=== PATIENT | female | born 1950 | race African-American/Black ===

== ENCOUNTER 2017-01-14 13:35 | Emergency (ER) | payer OTHER ==
[~2017-01-14] VITALS: Ht 167.6 cm; Wt 109.3 kg
[~2017-01-14 13:35] MED LIST: AMLO5TAB2 PO; ASPI325T11 PO; CEPH-264 PO; CRESTOR20 MG PO; CYCL5TAB PO; DIPH25CA58 PO; DOXY100T PO; ESOM40CA PO; FESO8TAB PO; IPRA3AMP23 IH; LIDO700A4 TP; MECL25TA3 PO; METR250T PO; MIRA25TA PO; OMEP40CA5 PO; PROAIR HFA8.5 GM IH; TRAM50TA PO; TRIA5PAS5 DT; VARE0.5T PO
--- NOTE | 2017-01-14 14:41 | RAD ---
Examination: CT head and cervical spine without contrast History: History of fall, hit head, trauma. Comparison: CT head from 03/24/2016 Technique: Axial CT images of the head was performed with contrast. Axial CT images of the cervical spine was performed and contrast. Coronal and sagittal reformats were performed PQRS Compliance Statement: One or more of the following individualized dose reduction techniques were utilized for this examination: 1. Automated exposure control 2. Adjustment of the mA and/or kV according to patient size 3. Use of iterative reconstruction technique Findings: There is no evidence of midline shift. There is no acute intracranial bleed or extra axial collection identified. The mann-white matter differentiation is maintained. The visualized lateral ventricles, third ventricle, fourth ventricle, are appropriate for age. The basal cisterns are uneffaced. The vertebral body heights are maintained. Moderate intervertebral disc height loss identified at C2-C3, C3-C4, C4-C5, C5-C6 vertebral levels. The bilateral facets are well aligned. No evidence of prevertebral soft tissue swelling identified. The lateral masses of C1 are aligned with C2 vertebra. The C2 dens appears intact. Moderate uncovertebral degenerative changes identified throughout the cervical spine. Impression: 1. No acute intracranial findings. 2. No acute fracture of cervical spine. Correlate clinically. 3. Moderate degenerative changes cervical spine.
[2017-01-14] MEDS ORDERED: HYDROcodone/APAP 5/325MG 1 TAB TABLET PO ONE (14:45)
[2017-01-14 15:01] VITALS: BP 143/75
[2017-01-14] MEDS ORDERED: ACET1TAB33 PO (15:22)
--- NOTE | 2017-01-14 15:23 | PHYS DOC ---
Past Medical History Past Medical History: High Cholesterol Past Surgical History: Knee Replacement, Tonsillectomy Additional Past Surgical Histo: BACK SX Alcohol Use: None Drug Use: None Adult General Chief Complaint Chief Complaint: MECHANICAL FALL HPI HPI Patient is a 66 year old female who was reaching for an object that was high up she does her balance and fell backwards, hit her head and neck, had a brief loss of consciousness. Patient was helped up to her feet was able to bear weight and walk afterwards. Currently she is on the complaining of found head pain in the back of her head as well as neck pain. Denies any weakness or numbness or vision changes. Review of Systems Review of Systems Constitutional: Denies fever or chills [] Eyes: Denies change in visual acuity, redness, or eye pain [] HENT: Posterior head pain Respiratory: Denies cough or shortness of breath [] Cardiovascular: Denies injury GI: Denies abdominal pain, nausea, vomiting, bloody stools or diarrhea [] Musculoskeletal: Mild left lower back pain Integument: Denies rash or skin lesions [] Neurologic: Denies focal weakness or sensory changes [] All systems reviewed and found to be negative unless otherwise stated. Current Medications Current Medications Current Medications Medications (Trade) Dose Ordered Sig/Anthony Start Time Stop Time Status Last Admin Dose Admin Acetaminophen/ Hydrocodone Bitart (Lortab 5/325) 1 tab 1X ONCE 01/14/17 14:45 01/14/17 14:46 DC 01/14/17 15:02 1 TAB Allergies Allergies Allergies Coded Allergies Type Severity Reaction Last Updated Verified cortisone Allergy Intermediate Hives 11/12/14 Yes esomeprazole Allergy Intermediate Rash 11/12/14 Yes ibuprofen Adverse Reaction Intermediate REYNOLDS STOMACH 11/12/14 Yes Physical Exam Physical Exam Constitutional: Well developed, well nourished, no acute distress, non-toxic appearance. [] HENT: Normocephalic, atraumatic, no signs of basilar skull fracture, oropharynx moist, no signs of oral trauma, nose normal. [] Eyes: PERRLA, EOMI, conjunctiva normal, no discharge. [] Neck: Normal range of motion, tenderness midline at the level C4, no step-offs, supple, no stridor. [] Cardiovascular:Heart rate regular rhythm, no murmur, equal pulses, normal perfusion. Mild diffuse chest wall tenderness to palpation, no crepitus, no ecchymosis, no bruising Lungs & Thorax: Bilateral breath sounds clear to auscultation, no tachypnea Abdomen: Bowel sounds normal, soft, no tenderness, no masses, no pulsatile masses. Pelvis stable Skin: Warm, dry, no erythema, no rash. [] Back: No tenderness, no CVA tenderness. No step-offs Extremities: No tenderness, no cyanosis, no clubbing, ROM intact, no edema. No pain with range of motion of her lower extremities Neurologic: Alert and oriented X 3, normal motor function, no focal deficits noted. [] Psychologic: Affect normal, judgement normal, mood normal. [] Current Patient Data Vital Signs Vital Signs Date Time Temp Pulse Resp B/P (MAP) Pulse Ox O2 Delivery O2 Flow Rate FiO2 01/14/17 15:02 18 98 Room Air 01/14/17 15:01 72 143/75 (97) 01/14/17 13:35 97.8 97.8 EKG EKG [] Radiology/Procedures Radiology/Procedures No acute findings on CT scan of the head and the neck[] Course & Med Decision Making Course & Med Decision Making Pertinent Labs and Imaging studies reviewed. (See chart for details) 1516 patient resting comfortably and in no distress [] Dragon Disclaimer Dragon Disclaimer This electronic medical record was generated, in whole or in part, using a voice recognition dictation system. Departure Departure Disposition: HOME, SELF-CARE Condition: STABLE Referrals: PREETI VALENZUELA MD (PCP) Please follow-up with your doctor for recheck and reevaluation in the 3-5 days if needed. If he started expressing unusual headaches changes in vision and vomiting problems with ambulation or localized weakness return to the ED immediately or see your doctor immediately Patient Instructions: Head Injury, Adult, Soft Tissue Injury of the Neck Scripts Acetaminophen With Codeine (ACETAMINOPHEN-COD #3 TABLET) 1 Each Tablet 1 TAB PO PRN Q6HRS Y for PAIN for 2 Days, #8 TAB Prov: Lara RODRIGUEZ MD 01/14/17 Lara RODRIGUEZ MD Jan 14, 2017 15:23
== END 2017-01-14 15:50 | disposition home or self-care (01) ==
LOC: ER 13:35
DX: R51 Headache (principal); M54.2 Cervicalgia; M54.5 Low back pain; E78.00 Pure hypercholesterolemia, unspecified; Z88.6 Allergy status to analgesic agent; Z88.8 Allergy status to other drugs, medicaments and biological substances; W18.09XA Striking against other object with subsequent fall, initial encounter; Y93.89 Activity, other specified; Y99.8 Other external cause status; Y92.89 Other specified places as the place of occurrence of the external cause
CPT/HCPCS: 70450; 72125; 99284-25

== ENCOUNTER 2018-04-09 21:11 | Emergency (ER) | payer OTHER ==
[~2018-04-09] VITALS: Ht 167.6 cm; Wt 113.4 kg
[~2018-04-09 21:11] MED LIST changes: +ACET1TAB33 PO; +ALBU2.5V8 IH; -AMLO5TAB2 PO; +AMLO5TAB7 PO; -PROAIR HFA8.5 GM IH
--- NOTE | 2018-04-09 22:46 | PHYS DOC ---
Past Medical History Past Medical History: High Cholesterol Past Surgical History: Knee Replacement, Tonsillectomy Additional Past Surgical Histo: BACK SX Alcohol Use: None Drug Use: None Adult General Chief Complaint Chief Complaint: NEURO SYMPTOMS/DEFICITS HPI HPI Patient is a 67 year old female who presents with left-sided facial pain, dizziness, headache and frequent falls. Symptom onset was several weeks ago. Patient's been evaluated her primary care physician for her complaints anti- inflammatories.Patient denies fever,chills,nausea vomiting or sweats.Does report ringing in left ear. No extremity weakness loss of sedation or change of vision. No chest pain palpitations,shortness of breath. No other acute symptoms or complaints. [] Review of Systems Review of Systems Review symptoms as per history of present illness. All other review symptoms are negative. All other systems were reviewed and found to be within normal limits, except as documented in this note. Current Medications Current Medications Current Medications Medications (Trade) Dose Ordered Sig/Anthony Start Time Stop Time Status Last Admin Dose Admin Info (CONTRAST GIVEN -- Rx MONITORING) 1 each PRN DAILY PRN 04/10/18 02:15 04/12/18 02:14 Iohexol (Omnipaque 300 Mg/ml) 100 ml 1X ONCE 04/10/18 02:30 04/10/18 02:31 DC Meclizine HCl (Antivert) 25 mg 1X ONCE 04/10/18 04:00 04/10/18 04:01 Allergies Allergies Allergies Coded Allergies Type Severity Reaction Last Updated Verified cortisone Allergy Intermediate Hives 11/12/14 Yes esomeprazole Allergy Intermediate Rash 11/12/14 Yes ibuprofen Adverse Reaction Intermediate REYNOLDS STOMACH 11/12/14 Yes Physical Exam Physical Exam Constitutional: Well developed, well nourished, no acute distress, non-toxic appearance. [] HENT: Normocephalic, atraumatic, bilateral external ears normal, oropharynx moist, no oral exudates, nose normal. No temporal scalp tenderness.[] Eyes: PERRLA, EOMI, conjunctiva normal, no nystagmus.[] Neck: Normal range of motion, no tenderness, supple, no stridor. [] Cardiovascular:Heart rate regular rhythm, no murmur [] Lungs & Thorax: Bilateral breath sounds clear to auscultation [] Abdomen: Bowel sounds normal, soft, no tenderness. [] Skin: Warm, dry, no erythema, no rash. [] Back: No tenderness, no CVA tenderness. [] Extremities: No tenderness, no cyanosis, no clubbing, ROM intact, no edema. [] Neurologic: Alert and oriented X 3, cranial nerves II through XII grossly intact , normal motor function, normal sensory function, no focal deficits noted. [] Psychologic: Affect normal, judgement normal, mood normal. [] Current Patient Data Vital Signs Vital Signs Date Time Temp Pulse Resp B/P (MAP) Pulse Ox O2 Delivery O2 Flow Rate FiO2 04/09/18 21:25 97.5 60 140/70 (93) 98 Room Air 97.5 Lab Values Laboratory Tests Test 04/09/18 22:40 04/09/18 23:40 White Blood Count 4.4 x10^3/uL (4.0-11.0) Red Blood Count 3.85 x10^6/uL (3.50-5.40) Hemoglobin 11.8 g/dL (12.0-15.5) L Hematocrit 35.2 % (36.0-47.0) L Mean Corpuscular Volume 92 fL (79-100) Mean Corpuscular Hemoglobin 31 pg (25-35) Mean Corpuscular Hemoglobin Concent 34 g/dL (31-37) Red Cell Distribution Width 13.8 % (11.5-14.5) Platelet Count 235 x10^3/uL (140-400) Neutrophils (%) (Auto) 44 % (31-73) Lymphocytes (%) (Auto) 47 % (24-48) Monocytes (%) (Auto) 8 % (0-9) Eosinophils (%) (Auto) 2 % (0-3) Basophils (%) (Auto) 0 % (0-3) Neutrophils # (Auto) 1.9 x10^3uL (1.8-7.7) Lymphocytes # (Auto) 2.0 x10^3/uL (1.0-4.8) Monocytes # (Auto) 0.3 x10^3/uL (0.0-1.1) Eosinophils # (Auto) 0.1 x10^3/uL (0.0-0.7) Basophils # (Auto) 0.0 x10^3/uL (0.0-0.2) Sodium Level 144 mmol/L (136-145) Potassium Level 3.6 mmol/L (3.5-5.1) Chloride Level 107 mmol/L (98-107) Carbon Dioxide Level 32 mmol/L (21-32) Anion Gap 5 (6-14) L Blood Urea Nitrogen 10 mg/dL (7-20) Creatinine 0.9 mg/dL (0.6-1.0) Estimated GFR (Cockcroft-Gault) 75.8 BUN/Creatinine Ratio 11 (6-20) Glucose Level 100 mg/dL (70-99) H Calcium Level 9.1 mg/dL (8.5-10.1) Total Bilirubin 0.3 mg/dL (0.2-1.0) Aspartate Amino Transferase (AST) 18 U/L (15-37) Alanine Aminotransferase (ALT) 14 U/L (14-59) Alkaline Phosphatase 61 U/L (46-116) Total Protein 7.1 g/dL (6.4-8.2) Albumin 3.3 g/dL (3.4-5.0) L Albumin/Globulin Ratio 0.9 (1.0-1.7) L Thyroid Stimulating Hormone (TSH) 3.786 uIU/mL (0.358-3.74) H Urine Collection Type Unknown Urine Color Yellow Urine Clarity Clear Urine pH 6.0 Urine Specific [place] 1.015 Urine Protein Negative mg/dL (NEG-TRACE) Urine Glucose (UA) Negative mg/dL (NEG) Urine Ketones (Stick) Negative mg/dL (NEG) Urine Blood Negative (NEG) Urine Nitrite Negative (NEG) Urine Bilirubin Negative (NEG) Urine Urobilinogen Dipstick 1.0 mg/dL (0.2 mg/dL) Urine Leukocyte Esterase Large (NEG) Urine RBC Occ /HPF (0-2) Urine WBC 5-10 /HPF (0-4) Urine Squamous Epithelial Cells Many /LPF Urine Bacteria Moderate /HPF (0-FEW) Urine Mucus Mod /LPF Urine Trichomonas Present Urine Opiates Screen Neg (NEG) Urine Methadone Screen Neg (NEG) Urine Barbiturates Neg (NEG) Urine Phencyclidine Screen Neg (NEG) Urine Amphetamine/Methamphetamine Neg (NEG) Urine Benzodiazepines Screen Neg (NEG) Urine Cocaine Screen Neg (NEG) Urine Cannabinoids Screen Neg (NEG) Urine Ethyl Alcohol Neg (NEG) Laboratory Tests 04/09/18 22:40 Laboratory Tests 04/09/18 22:40 EKG EKG [EKG: Reviewed] Radiology/Procedures Radiology/Procedures [CT head: NAD CTA head/neck: NAD] Course & Med Decision Making Course & Med Decision Making Pertinent Labs and Imaging studies reviewed. (See chart for details) [No focal neurologic deficits. Symptoms been ongoing for the past several weeks. Patient states her dizzy episodes are preceded by throbbing unilateral headache. CT head/CT angiogram head and neck her do not show evidence of acute disease. Lab work is nondiagnostic with the exception of an incidental UTI. Recommend continued supportive care with PCP follow-up for further management. Patient verbalizes understanding and agreement with discharge instructions prior to departure] Dragon Disclaimer Dragon Disclaimer This electronic medical record was generated, in whole or in part, using a voice recognition dictation system. Departure Departure Impression: Primary Impression: Dizziness Additional Impressions: Left arm weakness Urinary tract infection Disposition: HOME, SELF-CARE Condition: GOOD Referrals: PREETI VALENZUELA MD (PCP) Patient Instructions: Dizziness, [id number], General Headache Without Cause, [id number], Urinary Tract Infection Additional Instructions: Please be careful to use your walker as you are at increased risk of fall and injury. Please continue medications and take antibiotics as directed. Follow-up with your PCP in 3-5 days for reevaluation. Return to the ED if new or worsening symptoms. Scripts Cephalexin (KEFLEX) 500 Mg Capsule 1 CAP PO BID, #14 CAP Prov: VERNON HENSLEY DO 04/10/18 Problem Qualifiers VERNON HENSLEY DO Apr 09, 2018 22:46
[2018-04-09 22:59] LABS: BASO % 0 % (0-3); EOS # 0.1 x10^3/uL (0.0-0.7); EOS % 2 % (0-3); HEMATOCRIT 35.2 % (36.0-47.0); HEMOGLOBIN 11.8 g/dL (12.0-15.5); LYMPH % 47 % (24-48); MEAN CORPUSCULAR HEMOGLOBIN 31 pg (25-35); MEAN CORPUSCULAR HGB CONC 34 g/dL (31-37); MEAN CORPUSCULAR VOLUME 92 fL (79-100); MONO # 0.3 x10^3/uL (0.0-1.1); MONO % 8 % (0-9); NEUT # 1.9 x10^3uL (1.8-7.7); NEUT % 44 % (31-73); PLATELET COUNT 235 x10^3/uL (140-400); RED BLOOD COUNT 3.85 x10^6/uL (3.50-5.40); RED CELL DISTRIBUTION WIDTH 13.8 % (11.5-14.5); WHITE BLOOD COUNT 4.4 x10^3/uL (4.0-11.0)
[2018-04-09 23:09] LABS: CALCIUM 9.1 mg/dL (8.5-10.1); CREATININE 0.9 mg/dL (0.6-1.0); GFR 75.8; POTASSIUM 3.6 mmol/L (3.5-5.1)
[2018-04-09 23:14] LABS: ALBUMIN 3.3 g/dL (3.4-5.0); ALBUMIN/GLOBULIN RATIO 0.9 (1.0-1.7); TOTAL BILIRUBIN 0.3 mg/dL (0.2-1.0); TOTAL PROTEIN 7.1 g/dL (6.4-8.2)
--- NOTE | 2018-04-09 23:17 | RAD ---
CT brain without contrast. HISTORY: Headache, dizziness CT scan of brain was done without contrast. There is no intracranial hemorrhage or subdural hematoma. Ventricles are normal in size. There is no mass or shift of the midline. An acute CVA is not identified. Sinuses are clear. IMPRESSION: 1. No intracranial hemorrhage or acute finding noted. Electronically signed by: Kevin Alegre MD (04/09/2018 11:13 PM) [facility]
[2018-04-09 23:54] LABS: BILIRUBIN,URINE NEGATIVE (NEG); CLARITY,URINE CLEAR; COLOR,URINE YELLOW; NITRITE,URINE NEGATIVE (NEG); PROTEIN,URINE NEGATIVE (NEG-TRACE)
[2018-04-09 23:59] LABS: RBC,URINE OCC /HPF (0-2); SQUAMOUS EPITHELIAL CELL,UR MANY /LPF
[2018-04-10 00:01] LABS: BACTERIA,URINE MODERATE /HPF (0-FEW); TRICHOMONAS,URINE PRESENT
[2018-04-10 00:04] LABS: BARBITURATES NEG (NEG); BENZODIAZEPINES NEG (NEG); CANNABINOIDS NEG (NEG); COCAINE NEG (NEG); METHADONE NEG (NEG); OPIATES NEG (NEG); PHENCYCLIDINE NEG (NEG)
[2018-04-10 00:06] LABS: AMPHETAMINE/METHAMPHETAMINE NEG (NEG)
[2018-04-10] MEDS ORDERED: CONTRAST GIVEN. MC PRN (02:15)
[2018-04-10] MEDS ORDERED: IOHEXOL 300 MG/ML 100ML VIAL. IV ONE (02:30)
--- NOTE | 2018-04-10 03:16 | RAD ---
CTA head and neck with and without contrast 04/10/2018. Reason for exam: Headache and dizziness. Helical thin section CT images were performed through the neck and head using an infusion of 100 mL Omnipaque 300. Multiplanar and 3-D reformations were then performed. Carotid stenoses in the neck were graded per NASCET criteria. Exposure: One or more of the following individualized dose reduction techniques were utilized for this examination: 1. Automated exposure control 2. Adjustment of the mA and/or kV according to patient size 3. Use of iterative reconstruction technique. FINDINGS: CTA neck: There is the standard branching pattern of the great vessels. The common carotid arteries show tortuosity without apparent narrowing or focal plaque. The carotid bulbs are widely patent. The internal carotid arteries are both very tortuous through the neck, but show no significant plaque or narrowing. Both vertebral arteries are patent and similar in caliber. They show some tortuosity, but no focal narrowing, dissection or occlusion is seen. The visualized subclavian segments appear normal. Although this study was not performed to evaluate other structures, no abnormality is seen at the lung apices. There is no apparent mass or adenopathy in the neck. No airway abnormality is seen. The salivary glands and thyroid show no abnormality. IMPRESSION: No acute abnormality in the vessels of the neck. CTA head findings: The distal vertebral arteries are patent and appear normal extending to their confluence. The basilar artery and internal carotid arteries are patent extending through the skull base to the brain. No focal narrowing or aneurysmal dilatation is seen. The anterior, middle and posterior cerebral branches are patent bilaterally and show no apparent abnormality extending to their major branch points. The visualized cerebellar branches appear normal. No abnormal vascularity is seen. IMPRESSION: Normal CTA of the head. Electronically signed by: Law Steiner Jr., MD (04/10/2018 3:12 AM) [id number]
[2018-04-10 03:45] VITALS: BP 150/70
[2018-04-10] MEDS ORDERED: CEPH-264 PO (03:47)
[2018-04-10] MEDS ORDERED: MECLIZINE HCL 12.5 MG TABLET. PO ONE (04:00)
--- NOTE | 2018-04-10 07:57 | EKG ---
[facility] [address] [place] [address] Test Date: 2018-04-09 Test Time: 21:45:47 Pat Name: BELINDA GREENE Department: Room: Gender: Female [employer]: : 1950 Requested By: VERNON HENSLEY Order Number: [id number] Reading MD: Ben Dorado Measurements Intervals [place] Rate: 54 P: 50 OK: 166 QRS: -2 QRSD: 86 T: 21 QT: 438 QTc: 417 Interpretive Statements SINUS RHYTHM LEFTWARD AXIS Electronically Signed On 04-20-2018 7:53:12 [employer] by Ben Dorado
== END 2018-04-10 03:50 | disposition home or self-care (01) ==
LOC: ER 21:11
DX: R42 Dizziness and giddiness (principal); N39.0 Urinary tract infection, site not specified; R51 Headache; R53.1 Weakness; E78.00 Pure hypercholesterolemia, unspecified; Z88.8 Allergy status to other drugs, medicaments and biological substances
CPT/HCPCS: 36415; 70450; 70496; 70498; 80053; 80307; 81001; 84443; 85025; 87086; 93005; 99284-25

== ENCOUNTER 2018-04-29 08:46 | Inpatient (IN) | payer OTHER, MEDICAID ==
[~2018-04-29] VITALS: Ht 167.6 cm; Wt 119.4 kg
[~2018-04-29 08:46] MED LIST changes: +AMLO5TAB10 PO; -AMLO5TAB7 PO
[2018-04-29] MEDS ORDERED: IV NORMAL SALINE 1000ML BAG 1,000 ML IV ONE ×2 (09:30→14:15)
[2018-04-29] MEDS ORDERED: MECLIZINE HCL 12.5 MG TABLET. PO ONE (09:30)
--- NOTE | 2018-04-29 09:36 | RAD ---
Single view of the chest. 04/29/2018 8:53 AM Indication: SYNCOPE Comparison: Chest radiograph March 24, 2016 Findings: Central and perihilar vascular engorgement is noted. No pneumothorax or pleural effusion is seen. No focal consolidative infiltrate is identified. Heart size appears to be normal. No acute osseous changes are identified. IMPRESSION: Central vascular and perihilar vascular engorgement. Findings could represent early pulmonary edema or hypervolemia/significant fluid resuscitation. Electronically signed by: Jamie Mchugh MD (04/29/2018 9:31 AM) [id number]
--- NOTE | 2018-04-29 09:42 | PHYS DOC ---
Past Medical History Past Medical History: High Cholesterol, Stroke Past Surgical History: Appendectomy, Knee Replacement, Tonsillectomy Additional Past Surgical Histo: BACK SX; bilateral knee; bilateral capal tunnel Alcohol Use: None Drug Use: None Adult General Chief Complaint Chief Complaint: SYNCOPE HPI HPI Patient is a 67 year old female with a history of stroke, no deficits, chronic dizziness and vertigo presents today complaining of dizziness, with vertigo and 2 syncope episodes today. Patient states her symptoms are worse when she is up and moving. Patient states sometimes she feels like she or the room is spinning. Patient denies any nausea vomiting. Denies any headache. Denies any chest pain or shortness of breath. Review of Systems Review of Systems Constitutional: Denies fever or chills [] Eyes: Denies change in visual acuity, redness, or eye pain [] HENT: Denies nasal congestion or sore throat [] Respiratory: Denies cough or shortness of breath [] Cardiovascular: No additional information not addressed in HPI [] GI: Denies abdominal pain, nausea, vomiting, bloody stools or diarrhea [] : Denies dysuria or hematuria [] Musculoskeletal: Denies back pain or joint pain [] Integument: Denies rash or skin lesions [] Neurologic: Reports dizziness, vertigo, syncope. Denies headache, focal weakness or sensory changes [] All other systems were reviewed and found to be within normal limits, except as documented in this note. Current Medications Current Medications Current Medications Medications (Trade) Dose Ordered Sig/Anthony Start Time Stop Time Status Last Admin Dose Admin Acetaminophen (Tylenol) 650 mg PRN Q4HRS PRN 04/29/18 14:15 04/30/18 14:14 Azithromycin (Zithromax) 1,000 mg 1X ONCE 04/29/18 14:15 04/29/18 14:16 DC Ceftriaxone Sodium (Rocephin) 1 gm 1X ONCE 04/29/18 14:15 04/29/18 14:16 DC Info (CONTRAST GIVEN -- Rx MONITORING) 1 each PRN DAILY PRN 04/29/18 11:30 05/01/18 11:29 Iohexol (Omnipaque 350 Mg/ml) 100 ml 1X ONCE 04/29/18 11:00 04/29/18 11:15 DC 04/29/18 11:00 100 ML Meclizine HCl (Antivert) 25 mg PRN TID PRN 04/29/18 14:15 Metronidazole (Flagyl) 2,000 mg 1X ONCE 04/29/18 14:15 04/29/18 14:16 DC Ondansetron HCl (Zofran) 4 mg PRN Q8HRS PRN 04/29/18 14:15 04/30/18 14:14 Sodium Chloride 1,000 ml @ 125 mls/hr 1X ONCE 04/29/18 14:15 04/29/18 22:14 Allergies Allergies Allergies Coded Allergies Type Severity Reaction Last Updated Verified cortisone Allergy Intermediate Hives 11/12/14 Yes esomeprazole Allergy Intermediate Rash 11/12/14 Yes ibuprofen Adverse Reaction Intermediate REYNOLDS STOMACH 11/12/14 Yes Physical Exam Physical Exam Constitutional: Well developed, well nourished, no acute distress, non-toxic appearance. [] HENT: Normocephalic, atraumatic, bilateral external ears normal, oropharynx moist, no oral exudates, nose normal. [] Eyes: PERRLA, EOMI, conjunctiva normal, no discharge. [] Neck: Normal range of motion, no tenderness, supple, no stridor. [] Cardiovascular:Heart rate regular rhythm, no murmur [] Lungs & Thorax: Bilateral breath sounds clear to auscultation [] Abdomen: Bowel sounds normal, soft, no tenderness, no masses, no pulsatile masses. [] Skin: Warm, dry, no erythema, no rash. [] Back: No tenderness, no CVA tenderness. [] Extremities: No tenderness, no cyanosis, no clubbing, ROM intact, no edema. [] Neurologic: Alert and oriented X 3, normal motor function, normal sensory function, no focal deficits noted. Cranial nerves II through XII intact Psychologic: Affect normal, judgement normal, mood normal. [] Current Patient Data Vital Signs Vital Signs Date Time Temp Pulse Resp B/P (MAP) Pulse Ox O2 Delivery O2 Flow Rate FiO2 04/29/18 13:57 77 16 170/77 (108) 98 Room Air 04/29/18 08:54 97.7 97.7 Lab Values Laboratory Tests Test 04/29/18 10:00 04/29/18 13:00 White Blood Count 3.3 x10^3/uL (4.0-11.0) L Red Blood Count 3.79 x10^6/uL (3.50-5.40) Hemoglobin 11.6 g/dL (12.0-15.5) L Hematocrit 34.8 % (36.0-47.0) L Mean Corpuscular Volume 92 fL (79-100) Mean Corpuscular Hemoglobin 31 pg (25-35) Mean Corpuscular Hemoglobin Concent 33 g/dL (31-37) Red Cell Distribution Width 13.9 % (11.5-14.5) Platelet Count 222 x10^3/uL (140-400) Neutrophils (%) (Auto) 48 % (31-73) Lymphocytes (%) (Auto) 42 % (24-48) Monocytes (%) (Auto) 8 % (0-9) Eosinophils (%) (Auto) 1 % (0-3) Basophils (%) (Auto) 0 % (0-3) Neutrophils # (Auto) 1.6 x10^3uL (1.8-7.7) L Lymphocytes # (Auto) 1.4 x10^3/uL (1.0-4.8) Monocytes # (Auto) 0.3 x10^3/uL (0.0-1.1) Eosinophils # (Auto) 0.0 x10^3/uL (0.0-0.7) Basophils # (Auto) 0.0 x10^3/uL (0.0-0.2) Prothrombin Time 13.0 SEC (11.7-14.0) Prothrombin Time INR 1.0 (0.8-1.1) D-Dimer (Julia) 0.61 ug/mlFEU (0.00-0.50) H Sodium Level 145 mmol/L (136-145) Potassium Level 4.5 mmol/L (3.5-5.1) Chloride Level 106 mmol/L (98-107) Carbon Dioxide Level 31 mmol/L (21-32) Anion Gap 8 (6-14) Blood Urea Nitrogen 10 mg/dL (7-20) Creatinine 0.8 mg/dL (0.6-1.0) Estimated GFR (Cockcroft-Gault) 86.8 BUN/Creatinine Ratio 13 (6-20) Glucose Level 74 mg/dL (70-99) Calcium Level 9.1 mg/dL (8.5-10.1) Magnesium Level 2.0 mg/dL (1.8-2.4) Total Bilirubin 0.3 mg/dL (0.2-1.0) Aspartate Amino Transferase (AST) 15 U/L (15-37) Alanine Aminotransferase (ALT) 14 U/L (14-59) Alkaline Phosphatase 62 U/L (46-116) Troponin I Quantitative < 0.017 ng/mL (0.000-0.055) PC-Tqq-S-Type Natriuretic Peptide 59 pg/mL (0-124) Total Protein 6.9 g/dL (6.4-8.2) Albumin 3.2 g/dL (3.4-5.0) L Albumin/Globulin Ratio 0.9 (1.0-1.7) L Lipase 198 U/L (73-393) Thyroid Stimulating Hormone (TSH) 4.686 uIU/mL (0.358-3.74) H Urine Collection Type Unknown Urine Color Yellow Urine Clarity Clear Urine pH 7.0 Urine Specific [place] >=1.030 Urine Protein Negative mg/dL (NEG-TRACE) Urine Glucose (UA) Negative mg/dL (NEG) Urine Ketones (Stick) Negative mg/dL (NEG) Urine Blood Negative (NEG) Urine Nitrite Negative (NEG) Urine Bilirubin Negative (NEG) Urine Urobilinogen Dipstick 1.0 mg/dL (0.2 mg/dL) Urine Leukocyte Esterase Moderate (NEG) Urine RBC 6-10 /HPF (0-2) Urine WBC 11-20 /HPF (0-4) Urine Squamous Epithelial Cells Many /LPF Urine Bacteria 0 /HPF (0-FEW) Urine Trichomonas Present Urine Opiates Screen Neg (NEG) Urine Methadone Screen Neg (NEG) Urine Barbiturates Neg (NEG) Urine Phencyclidine Screen Neg (NEG) Urine Amphetamine/Methamphetamine Neg (NEG) Urine Benzodiazepines Screen Neg (NEG) Urine Cocaine Screen Neg (NEG) Urine Cannabinoids Screen Neg (NEG) Urine Ethyl Alcohol Neg (NEG) Laboratory Tests 04/29/18 10:00 Laboratory Tests 04/29/18 10:00 EKG EKG [address] Braun sinus rhythm, heart rate 66 ST segments congruent no STEMI[] Radiology/Procedures Radiology/Procedures []PROCEDURE: CT ANGIOGRAPHY CHEST CTA of the chest with contrast, 04/29/2018: HISTORY: Syncope, elevated d-dimer Multidetector CT imaging was performed following an IV bolus injection of iodinated contrast material. Multiplanar reconstructions were produced including coronal and sagittal MIP images. The central pulmonary arteries are well opacified and no filling defects are seen to suggest pulmonary emboli. There is calcific plaquing of the thoracic aorta without evidence of aneurysm. Scattered coronary artery calcifications are also present. There are calcified mediastinal and right hilar lymph nodes compatible with old granulomatous disease. There is mild streaky dependent atelectasis and/or scarring in both lungs. No pulmonary consolidation or mass is seen. There is no evidence of pleural fluid. IMPRESSION: 1. No CT evidence of central pulmonary emboli. 2. Scattered coronary artery calcifications. PQRS Compliance Statement: One or more of the following individualized dose reduction techniques were utilized for this examination: 1. Automated exposure control 2. Adjustment of the mA and/or kV according to patient size 3. Use of iterative reconstruction technique Electronically signed by: Inocente Aleman MD (04/29/2018 11:58 AM) [facility] DICTATED and SIGNED BY: INOCENTE ALEMAN MD DATE: 04/29/18 1151 PROCEDURE: PORTABLE CHEST 1V Single view of the chest. 04/29/2018 8:53 AM Indication: SYNCOPE Comparison: Chest radiograph March 24, 2016 Findings: Central and perihilar vascular engorgement is noted. No pneumothorax or pleural effusion is seen. No focal consolidative infiltrate is identified. Heart size appears to be normal. No acute osseous changes are identified. IMPRESSION: Central vascular and perihilar vascular engorgement. Findings could represent early pulmonary edema or hypervolemia/significant fluid resuscitation. Electronically signed by: Jamie Padilla MD (04/29/2018 9:31 AM) [facility] DICTATED and SIGNED BY: JAMIE PADILLA MD DATE: 04/29/18 0929 PROCEDURE: CT HEAD WO CONTRAST CT HEAD INDICATION: SYNCOPE COMPARISON: 04/07/2018 Exposure: One or more of the following individualized dose reduction techniques were utilized for this examination: 1. Automated exposure control 2. Adjustment of the mA and/or kV according to patient size 3. Use of iterative reconstruction technique TECHNIQUE: 5 mm contiguous axial images were obtained from the skull base to the vertex FINDINGS: Mild bilateral periventricular white matter hypodensities likely chronic small vessel ischemic disease. No evidence of acute intracranial hemorrhage. No extra-axial fluid collections. No mass effect or midline shift. Ventricular size is appropriate. Basal cisterns are patent. No fractures identified.Hdez-white differentiation is preserved.Globes and orbits are within normal limits. Paranasal sinuses and mastoid air cells are clear. IMPRESSION: No acute intracranial findings. Electronically signed by: Remberto Lozoya MD (04/29/2018 10:28 AM) [id number] DICTATED and SIGNED BY: REMBERTO LOZOYA MD DATE: 04/29/18 1023 Course & Med Decision Making Course & Med Decision Making Pertinent Labs and Imaging studies reviewed. (See chart for details) This is a 67-year-old female patient with history of vertigo presenting today with dizziness, vertigo symptoms and to syncope episodes today. CBC with a WBC of 3.3, CMP would not acute findings, CT of the head is negative, chest x-ray is negative. Urine analysis is noted for Trichomonas and urinary tract infection. Patient was given STD treatment in the ED. Patient was unable to get up and mobilize in the ED. Unable to get orthostatic vitals. Patient was given IV fluids and meclizine. Consulted with who accepted patient for admission Routine consult placed for neurosurgery Dr. Mccollum came and saw patient in the Ed. Dragon Disclaimer Dragon Disclaimer This electronic medical record was generated, in whole or in part, using a voice recognition dictation system. Departure Departure Impression: Primary Impression: Dizziness Additional Impressions: UTI (urinary tract infection) Vertigo Trichomonal vaginitis Disposition: ADMITTED INPATIENT Condition: STABLE Referrals: PREETI VALENZUELA MD (PCP) Problem Qualifiers Additional Impressions: UTI (urinary tract infection) Urinary tract infection type: site unspecified Hematuria presence: without hematuria Qualified Codes: N39.0 - Urinary tract infection, site not specified CIRILOUMANG OLIVER [facility] Apr 29, 2018 09:42
[2018-04-29 10:22] LABS: BASO % 0 % (0-3); CALCIUM 9.1 mg/dL (8.5-10.1); CREATININE 0.8 mg/dL (0.6-1.0); EOS % 1 % (0-3); GFR 86.8; HEMATOCRIT 34.8 % (36.0-47.0); HEMOGLOBIN 11.6 g/dL (12.0-15.5); LYMPH # 1.4 x10^3/uL (1.0-4.8); LYMPH % 42 % (24-48); MEAN CORPUSCULAR HEMOGLOBIN 31 pg (25-35); MEAN CORPUSCULAR HGB CONC 33 g/dL (31-37); MEAN CORPUSCULAR VOLUME 92 fL (79-100); MONO # 0.3 x10^3/uL (0.0-1.1); MONO % 8 % (0-9); NEUT # 1.6 x10^3uL (1.8-7.7); NEUT % 48 % (31-73); PLATELET COUNT 222 x10^3/uL (140-400); POTASSIUM 4.5 mmol/L (3.5-5.1); RED BLOOD COUNT 3.79 x10^6/uL (3.50-5.40); RED CELL DISTRIBUTION WIDTH 13.9 % (11.5-14.5); WHITE BLOOD COUNT 3.3 x10^3/uL (4.0-11.0)
[2018-04-29 10:28] LABS: ALBUMIN 3.2 g/dL (3.4-5.0); ALBUMIN/GLOBULIN RATIO 0.9 (1.0-1.7); TOTAL BILIRUBIN 0.3 mg/dL (0.2-1.0); TOTAL PROTEIN 6.9 g/dL (6.4-8.2)
--- NOTE | 2018-04-29 10:33 | RAD ---
CT HEAD INDICATION: SYNCOPE COMPARISON: 04/07/2018 Exposure: One or more of the following individualized dose reduction techniques were utilized for this examination: 1. Automated exposure control 2. Adjustment of the mA and/or kV according to patient size 3. Use of iterative reconstruction technique TECHNIQUE: 5 mm contiguous axial images were obtained from the skull base to the vertex FINDINGS: Mild bilateral periventricular white matter hypodensities likely chronic small vessel ischemic disease. No evidence of acute intracranial hemorrhage. No extra-axial fluid collections. No mass effect or midline shift. Ventricular size is appropriate. Basal cisterns are patent. No fractures identified.Hdez-white differentiation is preserved.Globes and orbits are within normal limits. Paranasal sinuses and mastoid air cells are clear. IMPRESSION: No acute intracranial findings. Electronically signed by: Remberto Silva MD (04/29/2018 10:28 AM) [facility]
--- NOTE | 2018-04-29 10:52 | EKG ---
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
[2018-04-29] MEDS ORDERED: IOHEXOL 350 MG/ML 100 ML VIAL. IV ONE (11:00)
[2018-04-29] MEDS ORDERED: CONTRAST GIVEN. MC PRN (11:30)
--- NOTE | 2018-04-29 12:03 | RAD ---
CTA of the chest with contrast, 04/29/2018: HISTORY: Syncope, elevated d-dimer Multidetector CT imaging was performed following an IV bolus injection of iodinated contrast material. Multiplanar reconstructions were produced including coronal and sagittal MIP images. The central pulmonary arteries are well opacified and no filling defects are seen to suggest pulmonary emboli. There is calcific plaquing of the thoracic aorta without evidence of aneurysm. Scattered coronary artery calcifications are also present. There are calcified mediastinal and right hilar lymph nodes compatible with old granulomatous disease. There is mild streaky dependent atelectasis and/or scarring in both lungs. No pulmonary consolidation or mass is seen. There is no evidence of pleural fluid. IMPRESSION: 1. No CT evidence of central pulmonary emboli. 2. Scattered coronary artery calcifications. PQRS Compliance Statement: One or more of the following individualized dose reduction techniques were utilized for this examination: 1. Automated exposure control 2. Adjustment of the mA and/or kV according to patient size 3. Use of iterative reconstruction technique Electronically signed by: Inocente Aleman MD (04/29/2018 11:58 AM) [facility]
[2018-04-29 13:10] LABS: BILIRUBIN,URINE NEGATIVE (NEG); CLARITY,URINE CLEAR; COLOR,URINE YELLOW; NITRITE,URINE NEGATIVE (NEG); PROTEIN,URINE NEGATIVE (NEG-TRACE)
[2018-04-29 13:17] LABS: BARBITURATES NEG (NEG); BENZODIAZEPINES NEG (NEG); CANNABINOIDS NEG (NEG); COCAINE NEG (NEG); METHADONE NEG (NEG); OPIATES NEG (NEG); PHENCYCLIDINE NEG (NEG)
[2018-04-29 13:22] LABS: AMPHETAMINE/METHAMPHETAMINE NEG (NEG); BACTERIA,URINE 0 /HPF (0-FEW); SQUAMOUS EPITHELIAL CELL,UR MANY /LPF
[2018-04-29 13:23] LABS: TRICHOMONAS,URINE PRESENT
[2018-04-29] MEDS ORDERED: AZITHROMYCIN 250 MG TABLET. PO ONE (14:15)
[2018-04-29] MEDS ORDERED: ONDANSETRON PF 4 MG/2 ML VIAL. IV PRN (14:15)
[2018-04-29] MEDS ORDERED: ACETAMINOPHEN 325 MG TABLET. PO PRN (14:15)
[2018-04-29] MEDS ORDERED: MECLIZINE HCL 12.5 MG TABLET. PO PRN (14:15)
[2018-04-29] MEDS ORDERED: cefTRIAXone IV Push 1 GM VIAL. IVP ONE (14:15)
[2018-04-29] MEDS ORDERED: metroNIDAZOLE 500 MG TABLET PO ONE (14:15)
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
[2018-04-29] MEDS: MECLIZINE HCL 12.5 MG TABLET. PO SCH ×2 (15:00→21:33)
[2018-04-29 16:00] VITALS: BP 123/63
--- NOTE | 2018-04-29 16:05 | RAD ---
MRI Brain without contrast History: Vertigo, dizziness, recent syncope Technique: Multiplanar, multisequential noncontrast MR imaging was performed of the brain. Comparison: March 25, 2016 Findings: There is mild motion. There is again scattered minimal T2 and FLAIR hyperintense signal abnormality of the supratentorial parenchyma bilaterally. Allowing for motion on both exams, findings have not convincingly changed. There is no new intra-axial mass effect, midline shift, extra-axial fluid collection. There is no evidence of recent infarct. Cerebral volume and ventricular size are within normal limits. There is no significant hemosiderin deposition of the brain parenchyma. There is preservation of the major arterial flow voids at the skull base. Mastoid air cells are mostly aerated, very mild thickening. There is a small mucous retention cyst lateral right maxillary sinus 0.6 cm. There is patchy mild bilateral ethmoid air cell and negligible maxillary sinus mucosal thickening. There is slightly disconjugate gaze. Impression: 1. There is no evidence of recent infarct or new intracranial mass effect. Scattered overall mild T2 and FLAIR hyperintense signal abnormality of the supratentorial parenchyma bilaterally has not convincingly changed compared with the 2016 allowing for motion on both exams. Nonspecific findings could be due to chronic microvascular ischemic disease. Electronically signed by: Dex Celis MD (04/29/2018 4:01 PM) [id number]
[2018-04-29 19:30] VITALS: BP 115/49
[2018-04-29 23:54] VITALS: BP 114/59
[2018-04-30 03:51] LABS: BASO % 0 % (0-3); EOS # 0.1 x10^3/uL (0.0-0.7); EOS % 2 % (0-3); HEMATOCRIT 32.5 % (36.0-47.0); HEMOGLOBIN 10.9 g/dL (12.0-15.5); LYMPH # 1.6 x10^3/uL (1.0-4.8); LYMPH % 47 % (24-48); MEAN CORPUSCULAR HEMOGLOBIN 31 pg (25-35); MEAN CORPUSCULAR HGB CONC 34 g/dL (31-37); MEAN CORPUSCULAR VOLUME 92 fL (79-100); MONO # 0.3 x10^3/uL (0.0-1.1); MONO % 9 % (0-9); NEUT # 1.4 x10^3uL (1.8-7.7); NEUT % 42 % (31-73); PLATELET COUNT 219 x10^3/uL (140-400); RED BLOOD COUNT 3.55 x10^6/uL (3.50-5.40); RED CELL DISTRIBUTION WIDTH 13.9 % (11.5-14.5); WHITE BLOOD COUNT 3.5 x10^3/uL (4.0-11.0)
[2018-04-30 03:59] VITALS: BP 119/53
[2018-04-30 04:18] LABS: CALCIUM 8.7 mg/dL (8.5-10.1); GFR 67.1
[2018-04-30 07:00] VITALS: BP 122/57
[2018-04-30] MEDS: MECLIZINE HCL 12.5 MG TABLET. PO SCH ×3 (08:10→20:24)
[2018-04-30 11:00] VITALS: BP 138/55
[2018-04-30] MEDS ORDERED: ALBUTEROL SULFATE 2.5 MG/3 ML NEBU. INH PRN (11:00)
[2018-04-30] MEDS ORDERED: ACETAMINOPHEN/CODEINE 300/30MG TABLET. PO PRN (11:00)
--- NOTE | 2018-04-30 11:04 | PDOC ---
Provider Note Provider Note Pt seen.H&P dictated. #[id number] PREETI VALENZUELA MD Apr 30, 2018 11:03
--- NOTE | 2018-04-30 11:38 | HP ---
ADMIT DATE: 04/29/2018 LOCATION: [facility] REASON FOR ADMISSION TO THE HOSPITAL: Vertigo, dizziness. HISTORY OF PRESENT ILLNESS: The patient is a 67-year-old female who has history of hypertension, hyperlipidemia, anxiety and had a TIA in 2016. She was having dizziness and also room spinning, got progressively worse. She has this for a couple of weeks to a couple of months now, but got to a point where she was very lightheaded and unsteady and was brought to the hospital. CT head was negative and she was admitted. Neurology was consulted. PAST MEDICAL HISTORY: Hypertension, hyperlipidemia, COPD, TIA, GERD, borderline diabetes. PAST SURGICAL HISTORY: Appendectomy, bilateral knee replacements, tonsillectomy. FAMILY HISTORY: Hypertension, diabetes. SOCIAL HISTORY: Used to smoke 1 pack, down to 2-3 cigars daily. Denies alcohol or street drugs. ALLERGIES: CORTISONE, ESOMEPRAZOLE and IBUPROFEN. MEDICATIONS: At home, she takes tramadol, Crestor 20 mg daily, omeprazole 40 mg daily, amlodipine 5 mg daily, Myrbetriq 25 mg for bladder, triamcinolone cream, Flexeril, Lidoderm patch, meclizine for dizziness, ProAir, DuoNeb, and Benadryl. REVIEW OF SYSTEMS: CARDIAC: No chest pain. GASTROINTESTINAL: No nausea or vomiting. NEUROLOGICAL: Slight dizziness, no focal weakness, has problem with speech. Rest of the 14 systems was reviewed and negative. PHYSICAL EXAMINATION: GENERAL: The patient is not in any distress. VITAL SIGNS: Temperature 97, pulse 72, respirations 16, blood pressure 152/83, 99 on room air. HEENT: Head is atraumatic. Pupils equal. No nystagmus. Oral cavity: No congestion. NECK: Supple. Thyroid not enlarged, JVD not elevated. CHEST: Symmetrical. CARDIOVASCULAR: S1, S2. LUNGS: Clear to auscultation. No wheezing. ABDOMEN: Soft, no mass palpable. EXTERNAL GENITALIA: No [place]. RECTAL: Deferred. EXTREMITIES: No calf tenderness, no edema. Pulses 1+. NEUROLOGIC: Moving all extremities. No focal deficit noted. Sensory grossly normal. Motor grossly normal. LABORATORY DATA: Shows a white count 3.3, hemoglobin 11.6, platelets 222. INR 1.0. D-dimer was high at 0.6. Chemistry shows sodium 145, potassium 4.5, chloride 106, bicarbonate 31, BUN 10, creatinine 0.8, glucose 74, magnesium 2.0. LFTs were normal. TSH is 4.6. Urine shows 11-20 wbc's, moderate leukocyte esterase. Urine drug screen is negative. Chest x-ray was negative, head was negative. CTA of the chest negative for PE. Brain MRI negative for stroke. FINAL IMPRESSION: 1. Vertigo and dizziness. 2. History of transient ischemic attack 2 years ago. 3. Hypertension. 4. Chronic obstructive pulmonary disease. 5. Hyperlipidemia. 6. Anxiety. 7. Chronic vertigo. PLAN: At this time, she was admitted to the hospital. Neurology was consulted, PT, OT, head MRI, all the workup done and see how the patient responds in 1-2 days. PREETI VALENZUELA MD DR: APOLLO/remigio JOB#: [id number] / [id number]
[2018-04-30] MEDS: ASPIRIN ENTERIC COATED 325 MG TABLET.DR. PO SCH (11:44)
[2018-04-30] MEDS: PANTOPRAZOLE 40 MG TABLET.DR. PO SCH (11:44)
[2018-04-30] MEDS: CYCLOBENZAPRINE 10 MG TABLET. PO SCH ×2 (11:44→20:24)
[2018-04-30] MEDS: LIDOCAINE (700MG/PATCH) PATCH. TD SCH (11:44)
[2018-04-30] MEDS: amLODIPine BESYLATE 5 MG TABLET PO SCH (11:44)
[2018-04-30] MEDS: IPRATRPIUM/ALBUTEROL 0.5/2.5MG 3 ML NEBU. IH SCH ×3 (12:05→19:24)
--- NOTE | 2018-04-30 13:17 | PDOC ---
PROGRESS NOTES Assessment Problems Medical Problems: (1) Dizziness Status: Acute (2) Trichomonal vaginitis Status: Acute (3) UTI (urinary tract infection) Status: Acute (4) Vertigo Status: Acute Bilateral vestibular dysfunction, no sign of stroke or FI[employer]INE[employer] disease. Syncope related to vestibular dysfunction, vertigo Plan Continue meclizine, but keep in mind chronic meclizine can interfere with situation of brain to abnormal vestibular input. Vestibular rehabilitation Inpatient observation Outpatient vestibular evaluation if symptoms persist Subjective Still dizzy Objective Vital Signs Date Time Temp Pulse Resp B/P (MAP) Pulse Ox O2 Delivery O2 Flow Rate FiO2 04/30/18 12:08 98 Room Air 04/30/18 11:44 62 138/55 04/30/18 11:00 98.3 18 98.3 Intake and Output 04/30/18 07:01 Intake Total 1800 ml Balance 1800 ml Intake Oral 800 ml IV Total 1000 ml # Voids 1 PHYSICAL EXAM Alert. Oriented to time, place and person. PERRL. EOMI. Right gaze-evoked nystagmus CN: no focal findings. Muscle tone: normal. Muscle strength: 5/5 DTR: 2+ Plantar reflex: flexor Gait: not examined in bed. Sensory exam: no abnormal findings. No cerebellar signs elicited. Review of Relevant I have reviewed the following items ayla (where applicable) has been applied. Labs Laboratory Tests Test 04/29/18 10:00 04/29/18 13:00 04/30/18 03:25 White Blood Count 3.3 x10^3/uL (4.0-11.0) 3.5 x10^3/uL (4.0-11.0) Red Blood Count 3.79 x10^6/uL (3.50-5.40) 3.55 x10^6/uL (3.50-5.40) Hemoglobin 11.6 g/dL (12.0-15.5) 10.9 g/dL (12.0-15.5) Hematocrit 34.8 % (36.0-47.0) 32.5 % (36.0-47.0) Mean Corpuscular Volume 92 fL (79-100) 92 fL (79-100) Mean Corpuscular Hemoglobin 31 pg (25-35) 31 pg (25-35) Mean Corpuscular Hemoglobin Concent 33 g/dL (31-37) 34 g/dL (31-37) Red Cell Distribution Width 13.9 % (11.5-14.5) 13.9 % (11.5-14.5) Platelet Count 222 x10^3/uL (140-400) 219 x10^3/uL (140-400) Neutrophils (%) (Auto) 48 % (31-73) 42 % (31-73) Lymphocytes (%) (Auto) 42 % (24-48) 47 % (24-48) Monocytes (%) (Auto) 8 % (0-9) 9 % (0-9) Eosinophils (%) (Auto) 1 % (0-3) 2 % (0-3) Basophils (%) (Auto) 0 % (0-3) 0 % (0-3) Neutrophils # (Auto) 1.6 x10^3uL (1.8-7.7) 1.4 x10^3uL (1.8-7.7) Lymphocytes # (Auto) 1.4 x10^3/uL (1.0-4.8) 1.6 x10^3/uL (1.0-4.8) Monocytes # (Auto) 0.3 x10^3/uL (0.0-1.1) 0.3 x10^3/uL (0.0-1.1) Eosinophils # (Auto) 0.0 x10^3/uL (0.0-0.7) 0.1 x10^3/uL (0.0-0.7) Basophils # (Auto) 0.0 x10^3/uL (0.0-0.2) 0.0 x10^3/uL (0.0-0.2) Prothrombin Time 13.0 SEC (11.7-14.0) Prothromb Time International Ratio 1.0 (0.8-1.1) D-Dimer (Julia) 0.61 ug/mlFEU (0.00-0.50) Sodium Level 145 mmol/L (136-145) 141 mmol/L (136-145) Potassium Level 4.5 mmol/L (3.5-5.1) 4.0 mmol/L (3.5-5.1) Chloride Level 106 mmol/L (98-107) 107 mmol/L (98-107) Carbon Dioxide Level 31 mmol/L (21-32) 29 mmol/L (21-32) Anion Gap 8 (6-14) 5 (6-14) Blood Urea Nitrogen 10 mg/dL (7-20) 15 mg/dL (7-20) Creatinine 0.8 mg/dL (0.6-1.0) 1.0 mg/dL (0.6-1.0) Estimated GFR (Cockcroft-Gault) 86.8 67.1 BUN/Creatinine Ratio 13 (6-20) Glucose Level 74 mg/dL (70-99) 96 mg/dL (70-99) Calcium Level 9.1 mg/dL (8.5-10.1) 8.7 mg/dL (8.5-10.1) Magnesium Level 2.0 mg/dL (1.8-2.4) Total Bilirubin 0.3 mg/dL (0.2-1.0) Aspartate Amino Transf (AST/SGOT) 15 U/L (15-37) Alanine Aminotransferase (ALT/SGPT) 14 U/L (14-59) Alkaline Phosphatase 62 U/L (46-116) Troponin I Quantitative < 0.017 ng/mL (0.000-0.055) TC-Ext-O-Type Natriuretic Peptide 59 pg/mL (0-124) Total Protein 6.9 g/dL (6.4-8.2) Albumin 3.2 g/dL (3.4-5.0) Albumin/Globulin Ratio 0.9 (1.0-1.7) Lipase 198 U/L (73-393) Thyroid Stimulating Hormone (TSH) 4.686 uIU/mL (0.358-3.74) Urine Collection Type Unknown Urine Color Yellow Urine Clarity Clear Urine pH 7.0 Urine Specific [place] >=1.030 Urine Protein Negative mg/dL (NEG-TRACE) Urine Glucose (UA) Negative mg/dL (NEG) Urine Ketones (Stick) Negative mg/dL (NEG) Urine Blood Negative (NEG) Urine Nitrite Negative (NEG) Urine Bilirubin Negative (NEG) Urine Urobilinogen Dipstick 1.0 mg/dL (0.2 mg/dL) Urine Leukocyte Esterase Moderate (NEG) Urine RBC 6-10 /HPF (0-2) Urine WBC 11-20 /HPF (0-4) Urine Squamous Epithelial Cells Many /LPF Urine Bacteria 0 /HPF (0-FEW) Urine Trichomonas Present Urine Opiates Screen Neg (NEG) Urine Methadone Screen Neg (NEG) Urine Barbiturates Neg (NEG) Urine Phencyclidine Screen Neg (NEG) Urine Amphetamine/Methamphetamine Neg (NEG) Urine Benzodiazepines Screen Neg (NEG) Urine Cocaine Screen Neg (NEG) Urine Cannabinoids Screen Neg (NEG) Urine Ethyl Alcohol Neg (NEG) Laboratory Tests Test 04/30/18 03:25 White Blood Count 3.5 x10^3/uL (4.0-11.0) Red Blood Count 3.55 x10^6/uL (3.50-5.40) Hemoglobin 10.9 g/dL (12.0-15.5) Hematocrit 32.5 % (36.0-47.0) Mean Corpuscular Volume 92 fL (79-100) Mean Corpuscular Hemoglobin 31 pg (25-35) Mean Corpuscular Hemoglobin Concent 34 g/dL (31-37) Red Cell Distribution Width 13.9 % (11.5-14.5) Platelet Count 219 x10^3/uL (140-400) Neutrophils (%) (Auto) 42 % (31-73) Lymphocytes (%) (Auto) 47 % (24-48) Monocytes (%) (Auto) 9 % (0-9) Eosinophils (%) (Auto) 2 % (0-3) Basophils (%) (Auto) 0 % (0-3) Neutrophils # (Auto) 1.4 x10^3uL (1.8-7.7) Lymphocytes # (Auto) 1.6 x10^3/uL (1.0-4.8) Monocytes # (Auto) 0.3 x10^3/uL (0.0-1.1) Eosinophils # (Auto) 0.1 x10^3/uL (0.0-0.7) Basophils # (Auto) 0.0 x10^3/uL (0.0-0.2) Sodium Level 141 mmol/L (136-145) Potassium Level 4.0 mmol/L (3.5-5.1) Chloride Level 107 mmol/L (98-107) Carbon Dioxide Level 29 mmol/L (21-32) Anion Gap 5 (6-14) Blood Urea Nitrogen 15 mg/dL (7-20) Creatinine 1.0 mg/dL (0.6-1.0) Estimated GFR (Cockcroft-Gault) 67.1 Glucose Level 96 mg/dL (70-99) Calcium Level 8.7 mg/dL (8.5-10.1) Medications Current Medications Meclizine HCl (Antivert) 25 mg 1X ONCE PO Last administered on 04/29/18at 09:41 ; Start 04/29/18 at 09:30; Stop 04/29/18 at 09:31; Status DC Sodium Chloride 1,000 ml @ 1,000 mls/hr 1X ONCE IV Last administered on at 09:41; Start 04/29/18 at 09:30; Stop 04/29/18 at 10:29; Status DC Iohexol (Omnipaque 350 Mg/ml) 100 ml 1X ONCE IV Last administered on at 11:00; Start 04/29/18 at 11:00; Stop 04/29/18 at 11:15; Status DC Info (CONTRAST GIVEN -- Rx MONITORING) 1 each PRN DAILY PRN MC SEE COMMENTS; Start 04/29/18 at 11:30; Stop 05/01/18 at 11:29 Ondansetron HCl (Zofran) 4 mg PRN Q8HRS PRN IV NAUSEA/VOMITING Last administered on 04/30/18at 11:37; Start 04/29/18 at 14:15; Stop 04/30/18 at 14:14 Acetaminophen (Tylenol) 650 mg PRN Q4HRS PRN PO FEVER Last administered on 04/30at 08:13; Start 04/29/18 at 14:15; Stop 04/30/18 at 14:14 Sodium Chloride 1,000 ml @ 125 mls/hr 1X ONCE IV Last administered on at 14:15; Start 04/29/18 at 14:15; Stop 04/29/18 at 22:14; Status DC Meclizine HCl (Antivert) 25 mg PRN TID PRN PO DIZZINESS; Start 04/29/18 at 14: 15; Stop 04/29/18 at 14:30; Status DC Metronidazole (Flagyl) 2,000 mg 1X ONCE PO Last administered on 04/29/18at 14: 43; Start 04/29/18 at 14:15; Stop 04/29/18 at 14:16; Status DC Ceftriaxone Sodium (Rocephin) 1 gm 1X ONCE IVP Last administered on 04/29/18at 14:42; Start 04/29/18 at 14:15; Stop 04/29/18 at 14:16; Status DC Azithromycin (Zithromax) 1,000 mg 1X ONCE PO Last administered on 04/29/18at 14 :43; Start 04/29/18 at 14:15; Stop 04/29/18 at 14:16; Status DC Meclizine HCl (Antivert) 25 mg TID PO Last administered on 04/30/18at 08:10; Start 04/29/18 at 15:00 Acetaminophen/ Codeine Phosphate (Tylenol #3) 1 tab PRN Q6HRS PRN PO PAIN MILD ; Start 04/30/18 at 11:00 Albuterol Sulfate (Ventolin Neb Soln) 2.5 mg PRN Q4HRS PRN INH SHORTNESS OF BREATH; Start 04/30/18 at 11:00 Amlodipine Besylate (Norvasc) 5 mg DAILY PO Last administered on 04/30/18at 11: 44; Start 04/30/18 at 12:00 Aspirin (Ecotrin) 325 mg DAILYWBKFT PO Last administered on 04/30/18at 11:44; Start 04/30/18 at 12:00 Albuterol/ Ipratropium (Duoneb) 3 ml RTQID IH Last administered on 04/30/18at 12 :05; Start 04/30/18 at 12:00 Tramadol HCl (Ultram) 50 mg PRN Q6HRS PRN PO PAIN MODERATE; Start 04/30/18 at 11:00 Cephalexin HCl (Keflex) 500 mg TID PO ; Start 04/30/18 at 14:00 Cyclobenzaprine HCl (Flexeril) 5 mg BID PO Last administered on 04/30/18at 11:44 ; Start 04/30/18 at 11:45 Lidocaine (Lidoderm) 1 patch DAILY TD Last administered on 04/30/18at 11:44; Start 04/30/18 at 12:00 Non-Formulary Medication (Meclizine Hcl ) 25 mg TID PO ; Start 04/30/18 at 14:00 ; Status UNV Oxybutynin Chloride (Ditropan) 5 mg [id number] PO ; Start 04/30/18 at 14:00 Pantoprazole Sodium (Protonix) 40 mg DAILYAC PO Last administered on 04/30/18at 11:44; Start 04/30/18 at 12:00 Atorvastatin Calcium (Lipitor) 80 mg QHS PO ; Start 04/30/18 at 21:00 Active Scripts Active Keflex (Cephalexin) 500 Mg Capsule 1 Cap PO BID Acetaminophen-Cod #3 Tablet (Acetaminophen/Codeine Phosphate) 1 Each Tablet 1 Tab PO PRN Q6HRS PRN 2 Days Flagyl (Metronidazole) 250 Mg Tablet 1 Tab PO TID Keflex (Cephalexin) 500 Mg Capsule 1 Cap PO TID Aspirin Ec (Aspirin) 325 Mg Tablet. 325 Mg PO DAILYWBKFT 30 Days Reported Tramadol Hcl 50 Mg Tablet 50 Mg PO Q6H PRN Crestor (Rosuvastatin Calcium) 20 Mg Tablet 20 Mg PO HS Omeprazole 40 Mg Capsule.dr 40 Mg PO DAILYAC Amlodipine Besylate 5 Mg Tablet 5 Mg PO DAILY Myrbetriq (Mirabegron) 25 Mg Tab.er.24h 25 Mg PO DAILY Chantix (Varenicline Tartrate) 0.5 Mg Tablet 0.5 Mg PO DIRECTED 0.5 MG PO DAILY X3 DAY, 0.5 MG PO BID X4 DAY, 1 MG PO BID UNTIL END OF TREATMENT Cyclobenzaprine Hcl 5 Mg Tablet 5 Mg PO BID Lidoderm (Lidocaine) 700 Mg Adh..patch 700 Mg TP DAILY Meclizine Hcl 25 Mg Tablet 25 Mg PO TID Proair Hfa Inhaler (Albuterol Sulfate) 8.5 Gm Hfa.aer.ad 8.5 Gm IH PRN Q4HRS Duoneb 0.5 Mg-3 Mg/3 Ml Soln (Ipratropium/Albuterol Sulfate) 3 Ml Ampul.neb 3 Ml IH QID Vitals/I & O Vital Sign - Last 24 Hours 04/29/18 04/29/18 04/29/18 04/29/18 13:27 13:57 14:30 16:00 Temp 98.3 98.3 Pulse 58 77 76 72 Resp 16 16 16 17 B/P (MAP) 160/72 (101) 170/77 (108) 147/67 (93) 123/63 (83) Pulse Ox 99 98 99 98 O2 Delivery Room Air Room Air Room Air Room Air 04/29/18 04/29/18 04/30/18 04/30/18 19:30 23:54 03:59 07:00 Temp 98.0 97.8 97.8 98.7 98.0 97.8 97.8 98.7 Pulse 76 70 73 73 Resp 18 17 17 18 B/P (MAP) 115/49 (71) 114/59 (77) 119/53 (75) 122/57 (78) Pulse Ox 97 95 97 98 O2 Delivery Room Air Room Air Room Air Room Air 04/30/18 04/30/18 04/30/18 04/30/18 08:14 11:00 11:44 12:08 Temp 98.3 98.3 Pulse 62 62 Resp 18 B/P (MAP) 138/55 (82) 138/55 Pulse Ox 98 98 O2 Delivery Room Air Room Air Room Air Intake and Output 04/29/18 04/29/18 04/30/18 15:01 23:01 07:01 Intake Total 1000 ml 500 ml 300 ml Balance 1000 ml 500 ml 300 ml Images MRI Brain without contrast There is mild motion. There is again scattered minimal T2 and FLAIR hyperintense signal abnormality of the supratentorial parenchyma bilaterally. Allowing for motion on both exams, findings have not convincingly changed. There is no new intra-axial mass effect, midline shift, extra-axial fluid collection. There is no evidence of recent infarct. Cerebral volume and ventricular size are within normal limits. There is no significant hemosiderin deposition of the brain parenchyma. There is preservation of the major arterial flow voids at the skull base. Mastoid air cells are mostly aerated, very mild thickening. There is a small mucous retention cyst lateral right maxillary sinus 0.6 cm. There is patchy mild bilateral ethmoid air cell and negligible maxillary sinus mucosal thickening. There is slightly disconjugate gaze. Impression: 1. There is no evidence of recent infarct or new intracranial mass effect. Scattered overall mild T2 and FLAIR hyperintense signal abnormality of the supratentorial parenchyma bilaterally has not convincingly changed compared with the 2016 allowing for motion on both exams. Nonspecific findings could be due to chronic microvascular ischemic disease. JACQUI VOGEL MD Apr 30, 2018 13:17
[2018-04-30] MEDS ORDERED: NON FORMULARY ITEM (Meclizine Hcl 25 MG) PO SCH (14:00)
[2018-04-30] MEDS: OXYBUTYNIN CHLORIDE 5 MG TABLET PO SCH ×2 (14:44→20:23)
[2018-04-30] MEDS: traMADol 50 MG TABLET PO PRN (14:44)
[2018-04-30] MEDS: CEPHALEXIN 250 MG CAPSULE. PO SCH ×2 (14:44→20:24)
[2018-04-30 15:00] VITALS: BP_SYST 123; BP_SYST 147; BP_SYST 158; BP_DIAS 53; BP_DIAS 77; BP_DIAS 83
[2018-04-30 19:51] VITALS: BP 154/69
[2018-04-30] MEDS: ATORVASTATIN CALCIUM 40 MG TABLET. PO SCH (20:23)
[2018-04-30 23:05] VITALS: BP 140/65
[2018-05-01] VITALS (7 sets, daily range): BP systolic 116–173; BP diastolic 60–91
[2018-05-01 06:19] LABS: CHOLESTEROL/HDL RATIO 2.7
[2018-05-01] MEDS: IPRATRPIUM/ALBUTEROL 0.5/2.5MG 3 ML NEBU. IH SCH ×4 (07:21→19:58)
[2018-05-01] MEDS: LIDOCAINE (700MG/PATCH) PATCH. TD SCH (07:52)
[2018-05-01] MEDS: CEPHALEXIN 250 MG CAPSULE. PO SCH ×3 (07:52→22:15)
[2018-05-01] MEDS: CYCLOBENZAPRINE 10 MG TABLET. PO SCH ×2 (07:53→22:14)
[2018-05-01] MEDS: amLODIPine BESYLATE 5 MG TABLET PO SCH (07:54)
[2018-05-01] MEDS: ASPIRIN ENTERIC COATED 325 MG TABLET.DR. PO SCH (07:54)
[2018-05-01] MEDS: OXYBUTYNIN CHLORIDE 5 MG TABLET PO SCH ×3 (07:54→22:14)
[2018-05-01] MEDS: MECLIZINE HCL 12.5 MG TABLET. PO SCH (07:54)
[2018-05-01] MEDS: PANTOPRAZOLE 40 MG TABLET.DR. PO SCH (07:55)
--- NOTE | 2018-05-01 12:37 | PDOC ---
PROGRESS NOTES Subjective Subjective improving slowly Objective Objective Vital Signs Date Time Temp Pulse Resp B/P (MAP) Pulse Ox O2 Delivery O2 Flow Rate FiO2 05/01/18 11:22 Room Air 05/01/18 11:00 98.1 93 16 173/86 (115) 97 98.1 Intake and Output 05/01/18 07:01 Intake Total 980 ml Balance 980 ml Intake Oral 980 ml # Voids 4 Physical Exam Abdomen: Normal bowel sounds, Soft Heart: Regular rate, Normal S1, Normal S2 Extremities: No clubbing General: Alert, Oriented X3 HEENT: Atraumatic Lungs: Clear to auscultation MUSCULOSKELETAL: No swelling, Other Neck: Supple Neuro: Normal speech Psych/Mental Status: Mental status NL Skin: No breakdown Diagnosis Problem List Problems Medical Problems: (1) Dizziness Status: Acute (2) Trichomonal vaginitis Status: Acute (3) UTI (urinary tract infection) Status: Acute (4) Vertigo Status: Acute Assessment Assessment Problems Medical Problems: (1) Dizziness Status: Acute (2) Trichomonal vaginitis Status: Acute (3) UTI (urinary tract infection) Status: Acute (4) Vertigo Status: Acute FINAL IMPRESSION: 1. Vertigo and dizziness. 2. History of transient ischemic attack 2 years ago. 3. Hypertension. 4. Chronic obstructive pulmonary disease. 5. Hyperlipidemia. 6. Anxiety. 7. Chronic vertigo. PLAN: MRI brain neg. No cva vertigo. pt want to go home tomorrow . pt/ot/ check orthostatic. At this time, she was admitted to the hospital. Neurology was consulted, PT, OT, head MRI, all the workup done and see how the patient responds in 1-2 days. Plan Plan of Care Problems Medical Problems: (1) Dizziness Status: Acute (2) Trichomonal vaginitis Status: Acute (3) UTI (urinary tract infection) Status: Acute (4) Vertigo Status: Acute Comment Review of Relevant I have reviewed the following items ayla (where applicable) has been applied. Labs Laboratory Tests Test 05/01/18 04:15 Triglycerides Level 137 mg/dL (0-150) Cholesterol Level 155 mg/dL (0-200) LDL Cholesterol, Calculated 70 mg/dL (0-100) VLDL Cholesterol, Calculated 27 mg/dL (0-40) Non-HDL Cholesterol Calculated 97 mg/dL (0-129) HDL Cholesterol 58 mg/dL (40-60) Cholesterol/HDL Ratio 2.7 Microbiology 04/29/18 Urine Culture - Final, Complete 04/29/18 Urine Culture Result 1 (KIANA) - Final, Complete Medications Current Medications Atorvastatin Calcium (Lipitor) 80 mg QHS PO Last administered on 04/30/18at 20: 23; Start 04/30/18 at 21:00 Cephalexin HCl (Keflex) 500 mg TID PO Last administered on 05/01/18at 07:52; Start 04/30/18 at 14:00 Non-Formulary Medication (Meclizine Hcl ) 25 mg TID PO ; Start 04/30/18 at 14:00 ; Status UNV Oxybutynin Chloride (Ditropan) 5 mg [id number] PO Last administered on 05/01/18at 07 :54; Start 04/30/18 at 14:00 Vitals/I & O Vital Sign - Last 24 Hours 04/30/18 04/30/18 04/30/18 04/30/18 14:44 15:00 15:00 15:00 Temp 98.8 98.8 Pulse 104 89 91 Resp 18 18 18 B/P (MAP) 147/83 (104) 123/53 (76) 158/77 (104) Pulse Ox 98 96 97 96 O2 Delivery Room Air Room Air Room Air Room Air 04/30/18 04/30/18 04/30/18 04/30/18 15:13 16:02 19:24 19:51 Temp 98.3 98.3 Pulse 95 Resp 16 B/P (MAP) 154/69 (97) Pulse Ox 96 99 94 O2 Delivery Room Air Room Air Room Air Room Air 04/30/18 04/30/18 05/01/18 05/01/18 20:00 23:05 03:27 07:00 Temp 98.0 98.4 97.4 98.0 98.4 97.4 Pulse 83 74 83 Resp 16 16 16 B/P (MAP) 140/65 (90) 134/62 (86) 116/60 (78) Pulse Ox 95 96 99 O2 Delivery Room Air Room Air Room Air Room Air 05/01/18 05/01/18 05/01/18 05/01/18 07:22 07:46 07:46 07:54 Temp 97.4 97.4 97.4 97.4 Pulse 89 79 89 Resp 16 16 B/P (MAP) 149/91 (110) 131/64 (86) 149/91 Pulse Ox 98 99 99 O2 Delivery Room Air Room Air Room Air 05/01/18 05/01/18 05/01/18 08:00 11:00 11:22 Temp 98.1 98.1 Pulse 93 Resp 16 B/P (MAP) 173/86 (115) Pulse Ox 97 O2 Delivery Room Air Room Air Room Air Intake and Output 04/30/18 04/30/18 05/01/18 15:01 23:01 07:01 Intake Total 200 ml 300 ml 480 ml Balance 200 ml 300 ml 480 ml PREETI VALENZUELA MD May 01, 2018 12:37
--- NOTE | 2018-05-01 12:58 | PDOC ---
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 Syncope related to vestibular dysfunction, vertigo Plan Discontinue meclizine, not helping much, chronic meclizine can interfere with habituation of brain to abnormal vestibular input. Vestibular rehabilitation, outpatient Aim for discharge tomorrow Outpatient vestibular (ENT or audiology) evaluation if symptoms persist Subjective Still dizzy Objective Vital Signs Date Time Temp Pulse Resp B/P (MAP) Pulse Ox O2 Delivery O2 Flow Rate FiO2 05/01/18 11:22 Room Air 05/01/18 11:00 98.1 93 16 173/86 (115) 97 98.1 Intake and Output 05/01/18 07:01 Intake Total 980 ml Balance 980 ml Intake Oral 980 ml # Voids 4 PHYSICAL EXAM Alert. Oriented to time, place and person. PERRL. EOMI. Right gaze-evoked nystagmus CN: no focal findings. Muscle tone: normal. Muscle strength: 5/5 DTR: 2+ Plantar reflex: flexor Gait: not examined in bed. Sensory exam: no abnormal findings. No cerebellar signs elicited. Review of Relevant I have reviewed the following items ayla (where applicable) has been applied. Labs Laboratory Tests Test 04/29/18 13:00 04/30/18 03:25 05/01/18 04:15 Urine Collection Type Unknown Urine Color Yellow Urine Clarity Clear Urine pH 7.0 Urine Specific [place] >=1.030 Urine Protein Negative mg/dL (NEG-TRACE) Urine Glucose (UA) Negative mg/dL (NEG) Urine Ketones (Stick) Negative mg/dL (NEG) Urine Blood Negative (NEG) Urine Nitrite Negative (NEG) Urine Bilirubin Negative (NEG) Urine Urobilinogen Dipstick 1.0 mg/dL (0.2 mg/dL) Urine Leukocyte Esterase Moderate (NEG) Urine RBC 6-10 /HPF (0-2) Urine WBC 11-20 /HPF (0-4) Urine Squamous Epithelial Cells Many /LPF Urine Bacteria 0 /HPF (0-FEW) Urine Trichomonas Present Urine Opiates Screen Neg (NEG) Urine Methadone Screen Neg (NEG) Urine Barbiturates Neg (NEG) Urine Phencyclidine Screen Neg (NEG) Urine Amphetamine/Methamphetamine Neg (NEG) Urine Benzodiazepines Screen Neg (NEG) Urine Cocaine Screen Neg (NEG) Urine Cannabinoids Screen Neg (NEG) Urine Ethyl Alcohol Neg (NEG) White Blood Count 3.5 x10^3/uL (4.0-11.0) Red Blood Count 3.55 x10^6/uL (3.50-5.40) Hemoglobin 10.9 g/dL (12.0-15.5) Hematocrit 32.5 % (36.0-47.0) Mean Corpuscular Volume 92 fL (79-100) Mean Corpuscular Hemoglobin 31 pg (25-35) Mean Corpuscular Hemoglobin Concent 34 g/dL (31-37) Red Cell Distribution Width 13.9 % (11.5-14.5) Platelet Count 219 x10^3/uL (140-400) Neutrophils (%) (Auto) 42 % (31-73) Lymphocytes (%) (Auto) 47 % (24-48) Monocytes (%) (Auto) 9 % (0-9) Eosinophils (%) (Auto) 2 % (0-3) Basophils (%) (Auto) 0 % (0-3) Neutrophils # (Auto) 1.4 x10^3uL (1.8-7.7) Lymphocytes # (Auto) 1.6 x10^3/uL (1.0-4.8) Monocytes # (Auto) 0.3 x10^3/uL (0.0-1.1) Eosinophils # (Auto) 0.1 x10^3/uL (0.0-0.7) Basophils # (Auto) 0.0 x10^3/uL (0.0-0.2) Sodium Level 141 mmol/L (136-145) Potassium Level 4.0 mmol/L (3.5-5.1) Chloride Level 107 mmol/L (98-107) Carbon Dioxide Level 29 mmol/L (21-32) Anion Gap 5 (6-14) Blood Urea Nitrogen 15 mg/dL (7-20) Creatinine 1.0 mg/dL (0.6-1.0) Estimated GFR (Cockcroft-Gault) 67.1 Glucose Level 96 mg/dL (70-99) Calcium Level 8.7 mg/dL (8.5-10.1) Triglycerides Level 137 mg/dL (0-150) Cholesterol Level 155 mg/dL (0-200) LDL Cholesterol, Calculated 70 mg/dL (0-100) VLDL Cholesterol, Calculated 27 mg/dL (0-40) Non-HDL Cholesterol Calculated 97 mg/dL (0-129) HDL Cholesterol 58 mg/dL (40-60) Cholesterol/HDL Ratio 2.7 Laboratory Tests Test 05/01/18 04:15 Triglycerides Level 137 mg/dL (0-150) Cholesterol Level 155 mg/dL (0-200) LDL Cholesterol, Calculated 70 mg/dL (0-100) VLDL Cholesterol, Calculated 27 mg/dL (0-40) Non-HDL Cholesterol Calculated 97 mg/dL (0-129) HDL Cholesterol 58 mg/dL (40-60) Cholesterol/HDL Ratio 2.7 Microbiology 04/29/18 Urine Culture - Final, Complete 04/29/18 Urine Culture Result 1 (KIANA) - Final, Complete Medications Current Medications Meclizine HCl (Antivert) 25 mg 1X ONCE PO Last administered on 04/29/18at 09:41 ; Start 04/29/18 at 09:30; Stop 04/29/18 at 09:31; Status DC Sodium Chloride 1,000 ml @ 1,000 mls/hr 1X ONCE IV Last administered on at 09:41; Start 04/29/18 at 09:30; Stop 04/29/18 at 10:29; Status DC Iohexol (Omnipaque 350 Mg/ml) 100 ml 1X ONCE IV Last administered on at 11:00; Start 04/29/18 at 11:00; Stop 04/29/18 at 11:15; Status DC Info (CONTRAST GIVEN -- Rx MONITORING) 1 each PRN DAILY PRN MC SEE COMMENTS; Start 04/29/18 at 11:30; Stop 05/01/18 at 11:29; Status DC Ondansetron HCl (Zofran) 4 mg PRN Q8HRS PRN IV NAUSEA/VOMITING Last administered on 04/30/18at 11:37; Start 04/29/18 at 14:15; Stop 04/30/18 at 14:14 ; Status DC Acetaminophen (Tylenol) 650 mg PRN Q4HRS PRN PO FEVER Last administered on 04/30at 08:13; Start 04/29/18 at 14:15; Stop 04/30/18 at 14:14; Status DC Sodium Chloride 1,000 ml @ 125 mls/hr 1X ONCE IV Last administered on at 14:15; Start 04/29/18 at 14:15; Stop 04/29/18 at 22:14; Status DC Meclizine HCl (Antivert) 25 mg PRN TID PRN PO DIZZINESS; Start 04/29/18 at 14: 15; Stop 04/29/18 at 14:30; Status DC Metronidazole (Flagyl) 2,000 mg 1X ONCE PO Last administered on 04/29/18at 14: 43; Start 04/29/18 at 14:15; Stop 04/29/18 at 14:16; Status DC Ceftriaxone Sodium (Rocephin) 1 gm 1X ONCE IVP Last administered on 04/29/18at 14:42; Start 04/29/18 at 14:15; Stop 04/29/18 at 14:16; Status DC Azithromycin (Zithromax) 1,000 mg 1X ONCE PO Last administered on 04/29/18at 14 :43; Start 04/29/18 at 14:15; Stop 04/29/18 at 14:16; Status DC Meclizine HCl (Antivert) 25 mg TID PO Last administered on 05/01/18at 07:54; Start 04/29/18 at 15:00 Acetaminophen/ Codeine Phosphate (Tylenol #3) 1 tab PRN Q6HRS PRN PO PAIN MILD ; Start 04/30/18 at 11:00 Albuterol Sulfate (Ventolin Neb Soln) 2.5 mg PRN Q4HRS PRN INH SHORTNESS OF BREATH; Start 04/30/18 at 11:00 Amlodipine Besylate (Norvasc) 5 mg DAILY PO Last administered on 05/01/18at 07: 54; Start 04/30/18 at 12:00 Aspirin (Ecotrin) 325 mg DAILYWBKFT PO Last administered on 05/01/18at 07:54; Start 04/30/18 at 12:00 Albuterol/ Ipratropium (Duoneb) 3 ml RTQID IH Last administered on 05/01/18at 11 :22; Start 04/30/18 at 12:00 Tramadol HCl (Ultram) 50 mg PRN Q6HRS PRN PO PAIN MODERATE Last administered on 04/30/18 14:44; Start 04/30/18 at 11:00 Cephalexin HCl (Keflex) 500 mg TID PO Last administered on 05/01/18 07:52; Start 04/30/18 at 14:00 Cyclobenzaprine HCl (Flexeril) 5 mg BID PO Last administered on 05/01/18 07:53 ; Start 04/30/18 at 11:45 Lidocaine (Lidoderm) 1 patch DAILY TD Last administered on 05/01/18 07:52; Start 04/30/18 at 12:00 Non-Formulary Medication (Meclizine Hcl ) 25 mg TID PO ; Start 04/30/18 at 14:00 ; Status UNV Oxybutynin Chloride (Ditropan) 5 mg [id number] PO Last administered on 05/01/18 07 :54; Start 04/30/18 at 14:00 Pantoprazole Sodium (Protonix) 40 mg DAILYAC PO Last administered on 05/01/18 07:55; Start 04/30/18 at 12:00 Atorvastatin Calcium (Lipitor) 80 mg QHS PO Last administered on 04/30/18at 20: 23; Start 04/30/18 at 21:00 Lactobacillus Rhamnosus (Culturelle) 1 cap BID PO ; Start 05/01/18 at 14:00 Active Scripts Active Keflex (Cephalexin) 500 Mg Capsule 1 Cap PO BID Acetaminophen-Cod #3 Tablet (Acetaminophen/Codeine Phosphate) 1 Each Tablet 1 Tab PO PRN Q6HRS PRN 2 Days Flagyl (Metronidazole) 250 Mg Tablet 1 Tab PO TID Keflex (Cephalexin) 500 Mg Capsule 1 Cap PO TID Aspirin Ec (Aspirin) 325 Mg Tablet. 325 Mg PO DAILYWBKFT 30 Days Reported Tramadol Hcl 50 Mg Tablet 50 Mg PO Q6H PRN Crestor (Rosuvastatin Calcium) 20 Mg Tablet 20 Mg PO HS Omeprazole 40 Mg Capsule.dr 40 Mg PO DAILYAC Amlodipine Besylate 5 Mg Tablet 5 Mg PO DAILY Myrbetriq (Mirabegron) 25 Mg Tab.er.24h 25 Mg PO DAILY Chantix (Varenicline Tartrate) 0.5 Mg Tablet 0.5 Mg PO DIRECTED 0.5 MG PO DAILY X3 DAY, 0.5 MG PO BID X4 DAY, 1 MG PO BID UNTIL END OF TREATMENT Cyclobenzaprine Hcl 5 Mg Tablet 5 Mg PO BID Lidoderm (Lidocaine) 700 Mg Adh..patch 700 Mg TP DAILY Meclizine Hcl 25 Mg Tablet 25 Mg PO TID Proair Hfa Inhaler (Albuterol Sulfate) 8.5 Gm Hfa.aer.ad 8.5 Gm IH PRN Q4HRS Duoneb 0.5 Mg-3 Mg/3 Ml Soln (Ipratropium/Albuterol Sulfate) 3 Ml Ampul.neb 3 Ml IH QID Vitals/I & O Vital Sign - Last 24 Hours 04/30/18 04/30/18 04/30/18 04/30/18 14:44 15:00 15:00 15:00 Temp 98.8 98.8 Pulse 104 89 91 Resp 18 18 18 B/P (MAP) 147/83 (104) 123/53 (76) 158/77 (104) Pulse Ox 98 96 97 96 O2 Delivery Room Air Room Air Room Air Room Air 04/30/18 04/30/18 04/30/18 04/30/18 15:13 16:02 19:24 19:51 Temp 98.3 98.3 Pulse 95 Resp 16 B/P (MAP) 154/69 (97) Pulse Ox 96 99 94 O2 Delivery Room Air Room Air Room Air Room Air 04/30/18 04/30/18 05/01/18 05/01/18 20:00 23:05 03:27 07:00 Temp 98.0 98.4 97.4 98.0 98.4 97.4 Pulse 83 74 83 Resp 16 16 16 B/P (MAP) 140/65 (90) 134/62 (86) 116/60 (78) Pulse Ox 95 96 99 O2 Delivery Room Air Room Air Room Air Room Air 05/01/18 05/01/18 05/01/18 05/01/18 07:22 07:46 07:46 07:54 Temp 97.4 97.4 97.4 97.4 Pulse 89 79 89 Resp 16 16 B/P (MAP) 149/91 (110) 131/64 (86) 149/91 Pulse Ox 98 99 99 O2 Delivery Room Air Room Air Room Air 05/01/18 05/01/18 05/01/18 08:00 11:00 11:22 Temp 98.1 98.1 Pulse 93 Resp 16 B/P (MAP) 173/86 (115) Pulse Ox 97 O2 Delivery Room Air Room Air Room Air Intake and Output 04/30/18 04/30/18 05/01/18 15:01 23:01 07:01 Intake Total 200 ml 300 ml 480 ml Balance 200 ml 300 ml 480 ml JACQUI VOGEL MD May 01, 2018 12:58
[2018-05-01] MEDS: LACTOBACILLUS RHAMNOSUS GG 1 CAPSULE. PO SCH ×2 (15:08→22:14)
[2018-05-01] MEDS: ATORVASTATIN CALCIUM 40 MG TABLET. PO SCH (22:14)
[2018-05-01] MEDS: traMADol 50 MG TABLET PO PRN (22:15)
[2018-05-01] MEDS ORDERED: ZOLPIDEM 5 MG TABLET. PO PRN (23:15)
[2018-05-02 00:10] LABS: HEMOGLOBIN A1C 5.5 % (4.8-5.6)
[2018-05-02 03:13] VITALS: BP 123/58
[2018-05-02] MEDS: traMADol 50 MG TABLET PO PRN (04:14)
[2018-05-02 07:40] VITALS: BP 142/82
[2018-05-02] MEDS: IPRATRPIUM/ALBUTEROL 0.5/2.5MG 3 ML NEBU. IH SCH ×2 (08:20→11:13)
[2018-05-02] MEDS: LACTOBACILLUS RHAMNOSUS GG 1 CAPSULE. PO SCH (08:33)
[2018-05-02] MEDS: PANTOPRAZOLE 40 MG TABLET.DR. PO SCH (08:34)
[2018-05-02] MEDS: CYCLOBENZAPRINE 10 MG TABLET. PO SCH (08:34)
[2018-05-02] MEDS: amLODIPine BESYLATE 5 MG TABLET PO SCH (08:34)
[2018-05-02] MEDS: ASPIRIN ENTERIC COATED 325 MG TABLET.DR. PO SCH (08:34)
[2018-05-02] MEDS: CEPHALEXIN 250 MG CAPSULE. PO SCH ×2 (08:34→12:29)
[2018-05-02] MEDS: OXYBUTYNIN CHLORIDE 5 MG TABLET PO SCH ×2 (08:34→12:29)
[2018-05-02] MEDS: LIDOCAINE (700MG/PATCH) PATCH. TD SCH (08:35)
--- NOTE | 2018-05-02 10:05 | PDOC ---
PROGRESS NOTES Subjective Subjective feels better today Objective Objective Vital Signs Date Time Temp Pulse Resp B/P (MAP) Pulse Ox O2 Delivery O2 Flow Rate FiO2 05/02/18 08:34 75 142/82 05/02/18 08:21 95 Room Air 05/02/18 07:40 98.2 18 98.2 Intake and Output 05/02/18 07:01 Intake Total 1040 ml Balance 1040 ml Intake Oral 1040 ml # Voids 3 # Bowel Movements 1 Physical Exam Abdomen: Normal bowel sounds, Soft Heart: Regular rate, Normal S1, Normal S2 Extremities: No clubbing General: Alert, Oriented X3 HEENT: Atraumatic Lungs: Clear to auscultation MUSCULOSKELETAL: No swelling, Other Neck: Supple Neuro: Normal speech Psych/Mental Status: Mental status NL Skin: No breakdown Diagnosis Problem List Problems Medical Problems: (1) Dizziness Status: Acute (2) Trichomonal vaginitis Status: Acute (3) UTI (urinary tract infection) Status: Acute (4) Vertigo Status: Acute Assessment Assessment Problems Medical Problems: (1) Dizziness Status: Acute (2) Trichomonal vaginitis Status: Acute (3) UTI (urinary tract infection) Status: Acute (4) Vertigo Status: Acute FINAL IMPRESSION: 1. Vertigo and dizziness. 2. History of transient ischemic attack 2 years ago. 3. Hypertension. 4. Chronic obstructive pulmonary disease. 5. Hyperlipidemia. 6. Anxiety. 7. Chronic vertigo. PLAN: MRI brain neg. CTA neck neg ECHO today vertigo.try low dose valium2 mg po bid, meclizine not helping. d/c home today. labs good Plan Plan of Care Problems Medical Problems: (1) Dizziness Status: Acute (2) Trichomonal vaginitis Status: Acute (3) UTI (urinary tract infection) Status: Acute (4) Vertigo Status: Acute Comment Review of Relevant I have reviewed the following items ayla (where applicable) has been applied. Labs Microbiology 04/29/18 Urine Culture - Final, Complete 04/29/18 Urine Culture Result 1 (KIANA) - Final, Complete Medications Current Medications Lactobacillus Rhamnosus (Culturelle) 1 cap BID PO Last administered on at 08:33; Start 05/01/18 at 14:00 Zolpidem Tartrate (Ambien) 5 mg PRN QHS PRN PO INSOMNIA Last administered on at 23:42; Start 05/01/18 at 23:15 Vitals/I & O Vital Sign - Last 24 Hours 05/01/18 05/01/18 05/01/18 05/01/18 11:00 11:22 15:33 15:38 Temp 98.1 97.7 98.1 97.7 Pulse 93 82 Resp 16 17 B/P (MAP) 173/86 (115) 133/71 (91) Pulse Ox 97 97 96 O2 Delivery Room Air Room Air Room Air Room Air 05/01/18 05/01/18 05/01/18 05/01/18 19:00 19:59 20:00 22:15 Temp 98.9 98.9 Pulse 94 Resp 17 B/P (MAP) 156/78 (104) Pulse Ox 96 98 O2 Delivery Room Air Room Air Room Air Room Air 05/01/18 05/02/18 05/02/18 05/02/18 23:01 03:13 04:14 05:14 Temp 99.0 97.9 99.0 97.9 Pulse 90 76 Resp 16 16 B/P (MAP) 123/60 (81) 123/58 (79) Pulse Ox 96 98 O2 Delivery Room Air Room Air Room Air Room Air 05/02/18 05/02/18 05/02/18 05/02/18 07:40 08:00 08:21 08:34 Temp 98.2 98.2 Pulse 75 75 Resp 18 B/P (MAP) 142/82 (102) 142/82 Pulse Ox 95 95 O2 Delivery Room Air Room Air Room Air Intake and Output 05/01/18 05/01/18 05/02/18 15:01 23:01 07:01 Intake Total 300 ml 640 ml 100 ml Balance 300 ml 640 ml 100 ml PREETI VALENZUELA MD May 02, 2018 10:04
[2018-05-02] MEDS ORDERED: DIAZ2TAB PO (10:07)
--- NOTE | 2018-05-02 10:12 | PDOC ---
Provider Note Provider Note Discharge summary dictated. #[id number] PREETI VALENZUELA MD May 02, 2018 10:12
--- NOTE | 2018-05-02 10:46 | DS ---
DATE OF DISCHARGE: 05/02/2018 REASON FOR ADMISSION TO THE HOSPITAL: Dizziness, vertigo. CONSULTATIONS: Dr. Bartlett. PROCEDURES DONE: 1. CT head. 2. CT angiogram of the chest. 3. Brain MRI. COMPLICATIONS NOTED: None. HOSPITAL COURSE: The patient is a 67-year-old female with history of hypertension, borderline diabetes, smoker. She was having dizzy, lightheaded, got progressively worse. She could hardly walk around, was brought to the hospital. TIA history 2 years ago without any acute MRI changes. The patient was admitted to hospital, seen by Neurology and MRI of the brain, no evidence of infarction. She had elevated D-dimer. She had a CT angiogram of the chest, no pulmonary embolism. She had a CT angiogram of the neck, which was done a month ago was negative. CT head was negative. The patient was seen by Neurology. It was thought could be just inner ear problem, vertigo and recommended a small dose of Valium. The patient was on meclizine, but was not helping. OTHER LABORATORY DATA: CBC was normal. D-dimer was slightly elevated at 0.6, was negative for PE. Electrolytes were unremarkable. A1c 5.5. Cholesterol 155. TSH 4.6. Urine shows 11 wbc's, moderate leukocyte esterase. Blood cultures negative. Treated with Keflex, but discontinued after the cultures are negative. Toxicology screen was negative. Chest x-ray negative. FINAL IMPRESSION: 1. Dizziness secondary to vertigo, probably inner ear problem. 2. No evidence of any stroke. Had an MRI of the brain, CT brain and recently CTA of the neck negative. 3. Hypertension. 4. Hyperlipidemia. 5. Bladder problem, chronic. DISPOSITION: Home. PT outpatient. ENT for chronic dizziness. PREETI VALENZUELA MD DR: APOLLO/remigio JOB#: [id number] / [id number]
[2018-05-02 11:34] VITALS: BP 145/79
--- NOTE | 2018-05-02 14:40 | NUR ---
Discharge Note: BELINDA GREENE [address] Discharge instructions and discharge home medications reviewed with Patient and a copy given. All questions have been answered and understanding verbalized. The following instructions and handouts were given: information about dizziness. Discontinued lines and drains: IV line in left forearm removed, catheter tip intact. Patient discharged to home with self care with family member, wheelchair used for mobility to dishcarge vehicle.
--- NOTE | 2018-05-02 14:51 | CARD ---
MR#: [id number] Date of Study: 05/02/2018 Ordering Physician: PREETI VALENZUELA, Referring Physician: PREETI VALENZUELA, Tech: Trisha Carbajal RDCS APPROVED REPORT EXAM: Two-dimensional and M-mode echocardiogram with Doppler and color Doppler. Other Information Quality : Good INDICATION Hypertension/HCVD 2D DIMENSIONS Left Atrium(2D)3.6 (1.6-4.0cm)IVSd0.9 (0.7-1.1cm) Aortic Root(2D)2.6 (2.0-3.7cm)LVDd4.8 (3.9-5.9cm) LVOT Diameter2.0 (1.8-2.4cm)PWd1.0 (0.7-1.1cm) LVDs3.2 (2.5-4.0cm)FS (%) 32.7 % SV65.6 ml Aortic Valve AoV Peak Giovanny.160.6cm/sAoV VTI28.8cm AO Peak GR.10.3mmHgLVOT Peak Giovanny.131.4cm/s AO Mean GR.5mmHgAVA (VMAX)2.56cm2 LIBAN (VTI)2.63aq2BM P 1/2 [id number] Mitral Valve MV E Kxhlxdrt870.3cm/sMV DECEL [id number] MV A Zerrqaqx13.3cm/sE/A Ratio1.2 Tricuspid Valve TR P. Siqxdjqq657qz/sRAP HENSBSAP3yeVs TR Peak Gr.27upAxGHIK85vxMj Pulmonary Vein S1 Riiwbjsn43.1cm/sD2 Hzbrfcdd42.7cm/s LEFT VENTRICLE The left ventricle is normal size. There is normal left ventricular wall thickness. The left ventricu lar systolic function is normal and the ejection fraction is within normal range. The Ejection Fracti on is 50-55%. There is normal LV segmental wall motion. Transmitral Doppler flow pattern is Grade I-a bnormal relaxation pattern. RIGHT VENTRICLE The right ventricle is normal size. The right ventricular systolic function is normal. ATRIA The left atrium size is normal. The right atrium size is normal. The interatrial septum is intact wit h no evidence for an atrial septal defect or patent foramen ovale as noted on 2-D or Doppler imaging. AORTIC VALVE The aortic valve is calcified but opens well. Doppler and Color Flow revealed trace aortic regurgitat ion. There is no significant aortic valvular stenosis. MITRAL VALVE The mitral valve is calcified but opens well. There is no evidence of mitral valve prolapse. There is no mitral valve stenosis. Doppler and Color-flow revealed trace to mild mitral regurgitation. TRICUSPID VALVE The tricuspid valve is normal in structure and function. Doppler and Color Flow revealed trace to mil d tricuspid regurgitation. The PA pressure was estimated at 32 mmHg. There is no tricuspid valve sten osis. PULMONIC VALVE The pulmonic valve is not well visualized. Doppler and Color Flow revealed mild pulmonic valvular reg urgitation. There is no pulmonic valvular stenosis. GREAT VESSELS The aortic root is normal in size. The ascending aorta is mildly dilated at 3.4 cm. The IVC is normal in size and collapses >50% with inspiration. PERICARDIAL EFFUSION There is no evidence of significant pericardial effusion. Critical Notification Critical Value: No <Conclusion> The left ventricle is normal size. The left ventricular systolic function is normal and the ejection fraction is within normal range. The Ejection Fraction is 50-55%. There is no significant aortic valvular stenosis. Doppler and Color Flow revealed trace aortic regurgitation. Doppler and Color-flow revealed trace to mild mitral regurgitation. Doppler and Color Flow revealed trace to mild tricuspid regurgitation. The PA pressure was estimated at 32 mmHg. The ascending aorta is mildly dilated at 3.4 cm. Signed by : Law Simpson MD Electronically Approved : 05/02/2018 14:49:54
--- NOTE | 2018-05-02 15:47 | PDOC ---
PROGRESS NOTES Assessment Assessment IMPRESSION: Bilateral vestibular dysfunction. Syncope related to vestibular dysfunction, vertigo DM. HTN. HLD. COPD. Obesity. RECOMMENDATIONS/PLAN: Vestibular rehabilitation, outpatient See ENT specialist. FU with PCP. FU with neurology as needed. Past Medical History Cardiovascular: HTN, Hyperlipidemia Pulmonary: COPD CENTRAL NERVOUS SYSTEM: TIA (Negative workup 2016) GI: GERD Endocrine: Diabetes Past Surgical History Appendectomy, Total knee replacement (bilateral), Tonsillectomy Family History Cancer Social History , still works, no alcohol, one or 2 cigarettes a day ALLERGY: Reviewed. MEDICATIONS: Refer to MAR REVIEW OF SYSTEMS: Constitutional: Obesity. Head: No traumatic brain or head injury. Skin: No edema, or rash. Ear: Bilateral tinnitus. Eyes: No vision loss, or diplopia. Nose: No bleeding or purulent discharges. Hearing: No hearing loss. Neck: No injury. Breast: No history of cancer, masses, or discharges. Cardiac: HTN, HLD Pulmonary: COPD. GI: No GI Ulcer, GI bleeding. Urinary/genital: UTI. Endocrine: Diabetes Mellitus, obesity. Skeletomuscular: No muscular atrophy, deformity. Neurological: see HP. Psychiatric: Denies drug use/abuse. Otherwise, not [id number] review of systems. PHYSICAL EXAMINATION: General appearance in no acute distress. HEENT: Normocephalic and nontraumatic. Eyes, nose, ears, and throat are unremarkable. Neck is supple. No lymphadenopathy. No Crepitus. Cardiovascular: S1, S2, regular rate and rhythm. Pulmonary: Clear to auscultation bilaterally. Abdomen: Bowel sounds are positive. Abdomen is soft, nontender, and nondistended. Extremities: No rash, lesions, or edema. No restriction of range of motion NEUROLOGICAL EXAMINATION: Alert. Oriented to time, place and person. PERRL. EOMI. CN: no focal findings. Muscle tone: within normal. Muscle strength: 4+ DTR: 1 due to obesity. Plantar reflex: Not examined. Gait: Walks with a walker. Sensory exam: no abnormal findings. No cerebellar signs elicited. F-T-N test accurate. Objective Objective Vital Signs Date Time Temp Pulse Resp B/P (MAP) Pulse Ox O2 Delivery O2 Flow Rate FiO2 05/02/18 11:34 97.9 87 18 145/79 (101) 94 Room Air 97.9 Intake and Output 05/02/18 07:01 Intake Total 1040 ml Balance 1040 ml Intake Oral 1040 ml # Voids 3 # Bowel Movements 1 Vitals Signs Vitals VS - Last 72 Hours, by Label Date Time Temp Pulse Resp B/P (MAP) Pulse Ox O2 Delivery O2 Flow Rate FiO2 05/02/18 11:34 97.9 87 18 145/79 (101) 94 Room Air 97.9 05/02/18 08:34 75 142/82 05/02/18 08:21 95 Room Air 05/02/18 08:00 Room Air 05/02/18 07:40 98.2 75 18 142/82 (102) 95 Room Air 98.2 05/02/18 05:14 Room Air 05/02/18 04:14 Room Air 05/02/18 03:13 97.9 76 16 123/58 (79) 98 Room Air 97.9 05/01/18 23:01 99.0 90 16 123/60 (81) 96 Room Air 99.0 05/01/18 22:15 Room Air 05/01/18 20:00 Room Air 05/01/18 19:59 98 Room Air 05/01/18 19:00 98.9 94 17 156/78 (104) 96 Room Air 98.9 05/01/18 15:38 97.7 82 17 133/71 (91) 96 Room Air 97.7 05/01/18 15:33 97 Room Air 05/01/18 11:22 Room Air 05/01/18 11:00 98.1 93 16 173/86 (115) 97 Room Air 98.1 05/01/18 08:00 Room Air 05/01/18 07:54 89 149/91 05/01/18 07:46 97.4 79 16 131/64 (86) 99 Room Air 97.4 05/01/18 07:46 97.4 89 16 149/91 (110) 99 Room Air 97.4 05/01/18 07:22 98 Room Air 05/01/18 07:00 97.4 83 16 116/60 (78) 99 Room Air 97.4 Laboratory Laboratory Microbiology 04/29/18 Urine Culture - Final, Complete 04/29/18 Urine Culture Result 1 (KIANA) - Final, Complete Medication Medications Current Medications Zolpidem Tartrate (Ambien) 5 mg PRN QHS PRN PO INSOMNIA Last administered on at 23:42; Start 05/01/18 at 23:15; Stop 05/02/18 at 14:47; Status DC Comment Review of Relevant I have reviewed the following items ayla (where applicable) has been applied. SANDY BARAJAS MD May 02, 2018 15:47
== END 2018-05-02 14:40 | disposition home or self-care (01) | DRG 155 ==
LOC: ER 08:46 → 6 SOUTH 13:18
PROVIDERS: ADMIT Internal Medicine; ATTEND Internal Medicine
DX: H93.19 Tinnitus, unspecified ear (principal); N39.0 Urinary tract infection, site not specified; E11.9 Type 2 diabetes mellitus without complications; A59.01 Trichomonal vulvovaginitis; E66.9 Obesity, unspecified; E78.00 Pure hypercholesterolemia, unspecified; E78.5 Hyperlipidemia, unspecified; F41.9 Anxiety disorder, unspecified; H91.90 Unspecified hearing loss, unspecified ear; I10 Essential (primary) hypertension; I25.10 Atherosclerotic heart disease of native coronary artery without angina pectoris; K21.9 Gastro-esophageal reflux disease without esophagitis; J44.9 Chronic obstructive pulmonary disease, unspecified; Z82.49 Family history of ischemic heart disease and other diseases of the circulatory system; Z86.73 Personal history of transient ischemic attack (TIA), and cerebral infarction without residual deficits; Z90.49 Acquired absence of other specified parts of digestive tract; Z96.653 Presence of artificial knee joint, bilateral; Z87.891 Personal history of nicotine dependence; Z83.3 Family history of diabetes mellitus
CPT/HCPCS: 36415; 70450; 70551; 71045; 71275; 80048; 80053; 80061; 80307; 81001; 83036; 83690; 83735; 83880; 84443; 84484; 85025; 85379; 85610; 87086; 93005; 93306; 94640; 94760; 96361; 96374; J0696; J2405; J7030; J7620; J8597; Q0144; Q9967; 95992; 97110; 97116; 97530; 99285-25; G0378

== ENCOUNTER 2019-11-19 20:26 | Emergency (ER) | payer OTHER, MEDICAID ==
[~2019-11-19] VITALS: Ht 167.6 cm; Wt 110.5 kg
[~2019-11-19 20:26] MED LIST changes: +DIAZ2TAB PO; +MECL-75 PO; -MECL25TA3 PO; +OMEP40CA45 PO; -OMEP40CA5 PO
[2019-11-19 21:07] LABS: BILIRUBIN,URINE NEGATIVE (NEG); CLARITY,URINE CLEAR; COLOR,URINE YELLOW; NITRITE,URINE NEGATIVE (NEG); PROTEIN,URINE NEGATIVE (NEG-TRACE)
[2019-11-19 21:14] VITALS: BP 160/83
[2019-11-19 21:14] LABS: BACTERIA,URINE FEW /HPF (0-FEW); SQUAMOUS EPITHELIAL CELL,UR MANY /LPF
[2019-11-19 21:15] LABS: RBC,URINE RARE /HPF (0-2)
--- NOTE | 2019-11-19 21:15 | PHYS DOC ---
Past Medical History Past Medical History: COPD, GERD, High Cholesterol, TIA (UMANG GRULLON APRN) Past Surgical History: Appendectomy, Tonsillectomy Additional Past Surgical Histo: BILATERAL KNEE REPLACMENT, BACK SURGERY (UMANG GRULLON APRN) Smoking Status: Never Smoker Alcohol Use: None Drug Use: None (UMANG GRULLON APRN) General Adult EDM: Chief Complaint: MECHANICAL FALL HPI: HPI: Patient is a 69 year old female who presents to the ED today complaining of 7 out of 10 right lateral rib pain that began today after she fell. Patient states she was removing some items from a table when she fell hitting her right ribs on the table. Patient denies any loss of consciousness. Denies hitting her head on the ground. Denies being on any anticoagulants. She states her pain is worse when she takes a deep breath. She describes the pain as sharp and constant. Daughter also reports patient having bruising on her back. Bruising appears old. (UMANG GRULLON APRN) Review of Systems: Review of Systems: Constitutional: Denies fever or chills. [] Eyes: Denies change in visual acuity. [] HENT: Denies nasal congestion or sore throat. [] Respiratory: Reports right rib pain. Denies cough or shortness of breath. [] Cardiovascular: Denies chest pain or edema. [] GI: Denies abdominal pain, nausea, vomiting, bloody stools or diarrhea. [] : Denies dysuria. [] Musculoskeletal: Denies back pain or joint pain. [] Integument: Denies rash. [] Neurologic: Denies headache, focal weakness or sensory changes. [] Psychiatric: Denies depression or anxiety. [] (UMANG GRULLON APRN) Heart Score: Risk Factors: Risk Factors: DM, Current or recent (<one month) smoker, HTN, HLP, family history of CAD, obesity. Risk Scores: Score 0 - 3: 2.5% MACE over next 6 weeks - Discharge Home Score 4 - 6: 20.3% MACE over next 6 weeks - Admit for Clinical Observation Score 7 - 10: 72.7% MACE over next 6 weeks - Early Invasive Strategies (UMANG GRULLON APRN) Allergies: Allergies: Allergies Coded Allergies Type Severity Reaction Last Updated Verified cortisone Allergy Intermediate Hives 11/12/14 Yes esomeprazole Allergy Intermediate Rash 11/12/14 Yes ibuprofen Adverse Reaction Intermediate REYNOLDS STOMACH 11/12/14 Yes (UMANG GRULLON APRN) Physical Exam: PE: Constitutional: Obese patient, well nourished, no acute distress, non-toxic appearance. [] HENT: Normocephalic, atraumatic, bilateral external ears normal, oropharynx moist, no oral exudates, nose normal. [] Eyes: PERRLA, EOMI, conjunctiva normal, no discharge. [] Neck: Normal range of motion, no tenderness, supple, no stridor. [] Cardiovascular:Heart rate regular rhythm, no murmur [] Lungs & Thorax: Bilateral breath sounds clear to auscultation, no bruising noted on the ribs. Tenderness on palpation of the right anterior ribs approximately ribs numbers 5 through 7 mid clavicular line. Abdomen: Bowel sounds normal, soft, no tenderness, no masses, no pulsatile masses. [] Skin: Warm, dry, no erythema, no rash. [] Back: old bruising noted on the lumbar spine, old healed surgical incision noted on the lumbar spine. No tenderness, no CVA tenderness. [] Extremities: No tenderness, no cyanosis, no clubbing, ROM intact, no edema. [] Neurologic: Alert and oriented X 3, normal motor function, normal sensory function, no focal deficits noted. [] Psychologic: Affect normal, judgement normal, mood normal. [] (UMANG GRULLON APRN) Current Patient Data: Vital Signs: Vital Signs Date Time Temp Pulse Resp B/P (MAP) Pulse Ox O2 Delivery O2 Flow Rate FiO2 11/19/19 20:35 98.6 77 17 176/82 (113) 99 Room Air 98.6 (UMANG GRULLON APRN) EKG: EKG: [] (UMANG GRULLON APRN) Radiology/Procedures: Radiology/Procedures: []PROCEDURE: LUMBAR SPINE 2-3V EXAM: LUMBAR SPINE 2-3V, RIBS RIGHT AND PA CHEST INDICATION: Reason: pain fell into a table / Spl. Instructions: / History: . TECHNIQUE: Single view PA chest and 3 additional views right ribs COMPARISON: 04/29/2018 FINDINGS: The heart size is normal. The great vessels appear unremarkable. There is no hilar or mediastinal mass. The lungs are clear. There is no pleural effusion or pneumothorax. There are no significant osseous abnormalities. The right rib series shows no displaced rib fractures or aggressive appearing osseous lesions. IMPRESSION: No active cardiopulmonary disease. No acute osseous abnormality shown. PROCEDURE: LUMBAR SPINE 2-3V, RIBS RIGHT AND PA CHEST CLINICAL INDICATION / HISTORY: Reason: pain, fell into a table / Spl. Instructions: / History: . TECHNIQUE: AP, lateral and coned-down lateral views of the lumbar spine were obtained COMPARISON: None FINDINGS: Five lumbar segments are identified. There are changes of posterior decompression at L3-L5 with subtle anterolisthesis of L4 on L5 and of L5 on S1. Lumbar vertebral bodies are normal in height and alignment. Facet hypertrophic changes are present. Disc height is mildly narrowed at multiple levels, most conspicuously at L2-L3.. Pedicles are intact. Abdominal arterial calcifications incidentally noted. IMPRESSION: No fracture or traumatic malalignment seen in the lumbar spine. Electronically signed by: Penny Mccabe MD (11/19/2019 9:28 PM) [facility] [place] DICTATED and SIGNED BY: PENNY MCCABE MD DATE: 11/19/192127 (UMANG GRULLON APRN) Course & Med Decision Making: Course & Med Decision Making Pertinent Labs and Imaging studies reviewed. (See chart for details) This is a 69-year-old female patient presenting to the ED today with right rib pain status post falling. Daughter also reports patient having bruising on her back. Bruising appears old. X-ray of the right ribs including PA chest is negative for any acute findings. Lumbar spine x-rays are negative for any acute findings. Urine analysis negative for infection. Discharge to home. Follow-up with PCP in 1 to 2 weeks (UMANG GRULLON APRN) Dragon Disclaimer: Dragon Disclaimer: This electronic medical record was generated, in whole or in part, using a voice recognition dictation system. (UMANG GRULLON APRN) Departure Departure Impression: Primary Impression: Fall Qualified Codes: W19.XXXA - Unspecified fall, initial encounter Additional Impressions: Contusion of rib on right side Qualified Codes: S20.211A - Contusion of right front wall of thorax, initial encounter Lumbar contusion Qualified Codes: S30.0XXA - Contusion of lower back and pelvis, initial encounter Disposition: 01 HOME, SELF-CARE Condition: STABLE Referrals: PREETI VALENZUELA MD (PCP) Follow-up in 1 to 2 weeks Patient Instructions: Rib Contusion Additional Instructions: You were evaluated in the emergency room after falling. Your x-rays of the right rib including chest as well as low back x-rays are negative for any acute findings. Try to ice and elevate the affected area. Take deep breaths 10 times every hour while awake. Follow-up with your own doctor in 1 to 2 weeks. Scripts Hydrocodone/Apap 5-325 (NORCO 5-325 TABLET) 1 Each Tablet 1 TAB PO Q8-12HRS PRN for PAIN, #12 TAB Prov: UMANG GRULLON APRN 11/19/19 Cyclobenzaprine Hcl (CYCLOBENZAPRINE HCL) 10 Mg Tablet 1 TAB PO TID, #30 TAB Prov: UMANG GRULLON APRN 11/19/19 Justicifation of Admission Dx: Justifications for Admission: Justification of Admission Dx: N/A (UMANG GRULLON APRN) Attending Signature Attending Signature I have reviewed the PA/BOARD CERTIFIED FAMILY PHYSICIAN's note and plan of care. I was available for con sultation as needed during the patient's visit in the emergency department. I agree with the clinical impression, plan, and disposition. (JENNY COOK DO) UMANG GRULLON APRN Nov 19, 2019 21:15 JENNY COOK DO Nov 23, 2019 08:33
--- NOTE | 2019-11-19 21:31 | RAD ---
EXAM: LUMBAR SPINE 2-3V, RIBS RIGHT AND PA CHEST INDICATION: Reason: pain fell into a table / Spl. Instructions: / History: . TECHNIQUE: Single view PA chest and 3 additional views right ribs COMPARISON: 04/29/2018 FINDINGS: The heart size is normal. The great vessels appear unremarkable. There is no hilar or mediastinal mass. The lungs are clear. There is no pleural effusion or pneumothorax. There are no significant osseous abnormalities. The right rib series shows no displaced rib fractures or aggressive appearing osseous lesions. IMPRESSION: No active cardiopulmonary disease. No acute osseous abnormality shown. PROCEDURE: LUMBAR SPINE 2-3V, RIBS RIGHT AND PA CHEST CLINICAL INDICATION / HISTORY: Reason: pain, fell into a table / Spl. Instructions: / History: . TECHNIQUE: AP, lateral and coned-down lateral views of the lumbar spine were obtained COMPARISON: None FINDINGS: Five lumbar segments are identified. There are changes of posterior decompression at L3-L5 with subtle anterolisthesis of L4 on L5 and of L5 on S1. Lumbar vertebral bodies are normal in height and alignment. Facet hypertrophic changes are present. Disc height is mildly narrowed at multiple levels, most conspicuously at L2-L3.. Pedicles are intact. Abdominal arterial calcifications incidentally noted. IMPRESSION: No fracture or traumatic malalignment seen in the lumbar spine. Electronically signed by: Justice Mccabe MD (11/19/2019 9:28 PM) [facility] [place]
[2019-11-19] MEDS ORDERED: CYCL10TA2 PO (22:02)
[2019-11-19] MEDS ORDERED: HYDR-3164 PO (22:02)
[2019-11-19] MEDS ORDERED: HYDROcodone/APAP 5/325MG 1 TAB TABLET PO ONE (22:30)
[2019-11-19] MEDS ORDERED: CYCLOBENZAPRINE 10 MG TABLET. PO ONE (22:30)
== END 2019-11-19 22:22 | disposition home or self-care (01) ==
LOC: ER 20:26
DX: S20.211A Contusion of right front wall of thorax, initial encounter (principal); S30.0XXA Contusion of lower back and pelvis, initial encounter; J44.9 Chronic obstructive pulmonary disease, unspecified; K21.9 Gastro-esophageal reflux disease without esophagitis; E78.00 Pure hypercholesterolemia, unspecified; Z86.73 Personal history of transient ischemic attack (TIA), and cerebral infarction without residual deficits; Z88.8 Allergy status to other drugs, medicaments and biological substances; W18.09XA Striking against other object with subsequent fall, initial encounter; Y93.89 Activity, other specified; Y92.89 Other specified places as the place of occurrence of the external cause; Y99.8 Other external cause status
CPT/HCPCS: 71101; 72100; 81001; 87086; 99284

== ENCOUNTER → 2020-01-04 | Outpatient (CLI) | payer OTHER, MEDICAID ==
[~2020-01-04] MED LIST changes: +CYCL10TA2 PO; +HYDR-3164 PO
--- NOTE | 2020-01-04 16:34 | RAD ---
2 views lumbar spine without comparison for back pain, frequent falls. FINDINGS: There is no fracture or acute osseous or alignment abnormality of the lumbar spine. There is mild grade 1 anterolisthesis of L4 and L5 as well as L5 on S1. Bulky facet arthropathy is seen from L3-4 through L5-S1. Mild narrowing of the L2-3 intervertebral disc space is present with grade 1 retrolisthesis at this level. There has been a prior cholecystectomy. Aortic atherosclerosis is seen. IMPRESSION: 1. Multilevel degenerative changes as described. The most prominent finding is advanced bilateral facet arthropathy from L3-4 down, likely producing at least some degree of neural foraminal narrowing at one or more levels. If there is clinical concern for nerve root impingement, consider MRI. Electronically signed by: Venu Redding MD (01/04/2020 4:31 PM) [id number]
--- NOTE | 2020-01-04 16:59 | RAD ---
EXAM: Thoracic spine, 3 views. HISTORY: Pain. Fall. COMPARISON: None. FINDINGS: 3 views of the thoracic spine are obtained. There is mild S-shaped thoracic scoliosis. There is no listhesis. There is no convincing acute fracture. There are lumbar laminectomy changes, partially included on the [id number]. IMPRESSION: Mild scoliosis. No acute osseous finding. Electronically signed by: Fawn Herrera MD (01/04/2020 4:56 PM) [email or web address]
== END | disposition home or self-care (01) ==
LOC: RAD 15:01
PROVIDERS: ATTEND Internal Medicine
DX: M47.816 Spondylosis without myelopathy or radiculopathy, lumbar region (principal); M43.17 Spondylolisthesis, lumbosacral region; M48.061 Spinal stenosis, lumbar region without neurogenic claudication; M41.84 Other forms of scoliosis, thoracic region; I70.0 Atherosclerosis of aorta; Z90.49 Acquired absence of other specified parts of digestive tract
CPT/HCPCS: 72072; 72100